=== PATIENT | male | born 1955 | race Caucasian/White ===

== ENCOUNTER 2017-02-28 17:03 | Inpatient (IN) | payer MEDICAID ==
[2017-02-28] VITALS (15 sets, daily range): BP systolic 79–119; BP diastolic 41–90; PULSE 83–92; RESP 20–33; Ht 172.7 cm; Wt 64.0 kg
[~2017-02-28] VITALS: Ht 172.7 cm; Wt 64.0 kg
[2017-02-28] MEDS ORDERED: ASPIRIN 325 MG TAB PO STA (17:29)
[2017-02-28] MEDS ORDERED: NITROGLYCERIN (SL) 0.4 MG TAB SL PRN (17:30)
--- NOTE | 2017-02-28 17:32 | ERD ---
ER Documentation Chief Complaint Chief Complaint chest pain x 2 wks worse today HPI This is a 61-year-old male with a history of hypertension, noncompliant on his medications who is presenting with chest pain. The patient first had chest pain left-sided radiating up into his neck with nausea and vomiting 2 weeks ago. It remitted after 1-2 days. However, it recurred approximately 2 hours prior to arrival to the emergency department today. He describes it as left- sided chest pressure and aching and squeezing. It is radiating into his neck bilaterally and the patient has jaw pain. He endorses nausea with sweating. The patient denies feeling sick recently. The patient denies fever or chills. The patient has had no headache or vision changes. The patient does not endorse back pain. The patient denies lightheadedness or dizziness. The patient has had no shortness of breath or trouble breathing. The patient denies abdominal pain or changes to bowel movements or urination. The patient has had no focal deficits. The patient has had no weakness or numbness or tingling to the face or extremities. ROS All systems reviewed and are negative except as per history of present illness. Allergies Allergies: Coded Allergies: No Known Allergy (Unverified , 02/28/17) PMhx/Soc History of Surgery: No Anesthesia Reaction: No Hx Neurological Disorder: No Hx Respiratory Disorders: No Hx Cardiac Disorders: Yes (HTN, HLD) Hx Psychiatric Problems: No Hx Miscellaneous Medical Probl: No FmHx Family History: No coronary disease Physical Exam Vitals Vital Signs Date Time Temp Pulse Resp B/P Pulse Ox O2 Delivery O2 Flow Rate FiO2 02/28/17 17:35 Nasal Cannula 2 02/28/17 17:07 98.0 97 16 94/73 95 Physical Exam Const: No apparent distress, well-developed, well-nourished Head: Atraumatic Eyes: Normal Conjunctiva. Extraocular movements intact. ENT: Normal External Ears, Nose and Mouth. Neck: Full range of motion. ~ No meningismus. Resp: Clear to auscultation bilaterally Cardio: Regular rate and rhythm, no murmurs Abd: Soft, non tender, non distended. Normal bowel sounds Skin: No petechiae or rashes Back: No midline or flank tenderness Ext: No cyanosis, or edema Neur: Awake and alert, oriented 4. Cranial nerves intact. No facial droop. Normal strength and sensation in all extremities. Coordination with finger to nose normal. Psych: Normal Mood and Affect Result Diagram: 02/28/17 17302/28/17 173 Results 24 hrs Laboratory Tests Test 02/28/17 17:30 02/28/17 18:50 White Blood Count 13.110^3/ul Red Blood Count 4.5610^6/ul Hemoglobin 13.4g/dl Hematocrit 40.3% Mean Corpuscular Volume 88.4fl Mean Corpuscular Hemoglobin 29.4pg Mean Corpuscular Hemoglobin Concent 33.3g/dl Red Cell Distribution Width 12.9% Platelet Count 29832^3/UL Mean Platelet Volume 10.1fl Neutrophils % 72.9% Lymphocytes % 18.7% Monocytes % 5.1% Eosinophils % 2.5% Basophils % 0.3% Nucleated Red Blood Cells % 0.0/100WBC Neutrophils # 9.510^3/ul Lymphocytes # 2.410^3/ul Monocytes # 0.710^3/ul Eosinophils # 0.310^3/ul Basophils # 0.010^3/ul Nucleated Red Blood Cells # 0.010^3/ul Prothrombin Time 12.8Sec Prothrombin Time Ratio 1.0 INR International Normalized Ratio 0.96 Sodium Level 143mmol/L Potassium Level 4.5mmol/L Chloride Level 106mmol/L Carbon Dioxide Level 29mmol/L Anion Gap 13 Blood Urea Nitrogen 14mg/dl Creatinine 0.80mg/dl Glucose Level 131mg/dl Calcium Level 9.6mg/dl Total Bilirubin 0.3mg/dl Direct Bilirubin 0.00mg/dl Indirect Bilirubin 0.3mg/dl Aspartate Amino Transf (AST/SGOT) 65IU/L Alanine Aminotransferase (ALT/SGPT) 53IU/L Alkaline Phosphatase 173IU/L Troponin I 3.690ng/ml Total Protein 7.6g/dl Albumin 3.6g/dl Globulin 4.00g/dl Albumin/Globulin Ratio 0.90 Blood Gas Specimen Source Blood arterial Arterial Blood Date Drawn 02/28/2017 6:58:05 PM Arterial Blood pH (Temp corrected) 7.449 Arterial Blood pCO2 (Temp correct) 33.7mmhg Arterial Blood pO2 (Temp corrected) 49.2mmHG Arterial Blood HCO3 22.8mmol/L Arterial Blood Base Excess -0.5mmol/L Arterial Blood Oxygen Saturation 85.7mmHG Abel Test N/A Arterial Blood Gas Puncture Site A-Line Arterial Blood Carboxyhemoglobin 1.5% Arterial Blood Methemoglobin 0.2% Blood Gas A-a O2 Differential 146.7mmHg Oxyhemoglobin Percent 84.2% Total Hemoglobin 13.5g/dl Blood Gas Temperature 37.0C Blood Gas Modality NASAL CANNULA FiO2 33.0% Blood Gas Critical Value Read Back MELINA EDMONDSON Blood Gas Notified Whom BR Blood Gas Notified Time 02/28/2017 7:05:53 PM Hepatitis B Surface Antigen Pending Hepatitis B Core Total Antibody Pending Hepatitis C Antibody Pending HIV (1&2) Antibody Pending Current Medications Medications (Trade) Dose Ordered Sig/Yazan Route PRN Reason Start Time Stop Time Status Last Admin Dose Admin Aspirin (Aspirin) 325 mg ONCE STAT PO 02/28/17 17:29 02/28/17 17:30 DC 02/28/17 17:34 Nitroglycerin (Nitroglycerin (Sl Tab) 0.4 Mg) 1 tab Q5M UP TO 3 DOSES PRN SL CHEST PAIN 02/28/17 17:30 02/28/17 17:35 Heparin Sodium (Porcine) (Heparin (1000 Units/ml)) 4,000 unit ONCE STAT IV 02/28/17 17:43 02/28/17 17:45 DC Heparin Sodium (Porcine) (Heparin (1000 Units/ml)) 10,000 unit STK-MED ONCE .ROUTE 02/28/17 17:49 02/28/17 17:50 DC Lidocaine (Xylocaine 1% (Mdv) 20 ml) 20 ml STK-MED ONCE .ROUTE 02/28/17 17:49 02/28/17 17:50 DC Iodixanol 100 ml 100 ml STK-MED ONCE .ROUTE 02/28/17 17:49 02/28/17 17:50 DC Heparin Sodium/ Sodium Chloride (Heparin 1000 Units/NS (A-Line)) 1,000 ml @ ud STK-MED ONCE .ROUTE 02/28/17 17:49 02/28/17 17:50 DC Midazolam HCl (Versed) 2 mg STK-MED ONCE .ROUTE 02/28/17 17:49 02/28/17 17:50 DC Fentanyl (Sublimaze) 100 mcg STK-MED ONCE .ROUTE 02/28/17 17:50 02/28/17 17:51 DC Nitroglycerin (Nitroglycerin (Intracoronary)) 1,000 mcg STK-MED ONCE .ROUTE 02/28/17 17:50 02/28/17 17:51 DC Verapamil HCl (Verapamil) 5 mg STK-MED ONCE .ROUTE 02/28/17 17:50 02/28/17 17:51 DC Ticagrelor (Brilinta) 90 mg STK-MED ONCE .ROUTE 02/28/17 18:02 02/28/17 18:03 DC Furosemide (Lasix) 40 mg STK-MED ONCE .ROUTE 02/28/17 18:43 02/28/17 18:44 DC Miscellaneous Information (* Miscellaneous Pharmacy Order) Hold all Metformin ... ONCE ONCE XX 02/28/17 19:00 02/28/17 20:03 DC Acetaminophen (Tylenol Tab) 650 mg Q4H PRN PO NON-CARDIAC PAIN LEVEL 1-3 02/28/17 19:00 Oxycodone/ Acetaminophen (Percocet (5/ 325)) 1 tab Q4H PRN PO REPORTED NON-CARDIAC PAIN 4-7 02/28/17 19:00 Oxycodone/ Acetaminophen (Percocet (5/ 325)) 2 tab Q4H PRN PO REPORTED NON-CARDIAC PAIN 4-7 02/28/17 19:00 Morphine Sulfate (morphine) 1 mg Q1H PRN IV PAIN NOT RELIEVED BY OTHERS 02/28/17 19:00 02/28/17 20:35 DC Al Hydrox/Mg Hydrox/Simethicone (Mag-Al Plus) 30 ml Q4H PRN PO GASTROINTESTINAL UPSET 02/28/17 19:00 Ondansetron HCl 4 mg 4 mg Q4H PRN IV NAUSEA AND/OR VOMITING 02/28/17 19:00 02/28/17 20:36 DC Sodium Chloride (NS) 1,000 ml @ 50 mls/hr Q20H IV 02/28/17 18:59 03/01/17 04:58 Procedures/MDM MDM The patient's presentation warrants further investigation. He is in his clinical presentation, I am concerned of acute coronary syndrome. An EKG, chest x-ray and blood work will be obtained immediately. LABS The patient's blood work was obtained and reviewed. The patient's CBC shows mild leukocytosis but no left shift. The patient is afebrile and does not appear systemically ill. I do not suspect a systemic infection. The patient is mildly anemic today, does not need to be emergently treated. The patient's platelet count is unremarkable. The patient's BMP shows no signs of metabolic or electrolyte abnormality. The patient's LFTs show mild transaminitis, which could be reactive. The patient has normal renal function testing. Since troponin is significantly elevated at 3.69. EKG EKG read by me: Rate/Rhythm: Regular rate and rhythm at a rate of 90 Intervals: Normal [place]: Left shifted Impression: 2-[address] elevations in leads V2 through V5 with reciprocal depressions in leads II, III and aVF, concerning for acute anterolateral wall cardial infarction IMAGING FINDINGS: The aorta is tortuous and atherosclerotic. The cardiomediastinal silhouette is otherwise enlarged. Diffuse pulmonary vascular congestion is seen with underlying pulmonary edema. No dense consolidation is seen. The soft tissues and osseous structures demonstrate benign age related senescent changes. IMPRESSION: Radiographic findings consistent with congestive heart failure as described above. Electronically viewed and signed by Physician Lamonte on 02/28/2017 18 :03 TREATMENT/DISPOSITION The patient's presenting with acute coronary syndrome, more specifically an acute anterolateral wall myocardial infarction. He was given aspirin and nitroglycerin initially in the emergency department. After the EKG was presented to me, I did call a code STEMI. I spoke to the residential monitor to felt that it was appropriate to take the patient to the cardiac Corporate Recycling Manager. Rest of the patient be given 4000 units of heparin. This was ordered. The patient was transferred to the Corporate Recycling Manager after 35 minutes. Patient will require admission to the ICU after cardiac catheterization. The patient will be admitted to Panel in accordance with the patient's insurance. The patient was accepted by Dr. Rodney at 7 PM on February 28, 2017 to ICU. CRITICAL CARE NOTE Time: 30 minutes excluding all billable procedures. Treatments/Evaluations: Evaluation of the patient's medical record including previous records & current laboratory/imaging studies, close monitoring, potential interventions if hemodynamically unstable or cardiopulmonary decline or neurologic decline, maintaining tight fluid balance, any discussions with the family regarding the patient's status and prognosis. Departure Diagnosis: Primary Impression: Myocardial infarction acute Myocardial infarction ST status: ST elevation myocardial infarction Involved coronary artery: unspecified coronary artery Qualified Code: I21.3 - Acute ST elevation myocardial infarction (STEMI), unspecified artery Condition: VENU Hayes MD Feb 28, 2017 17:32 [] The patient's blood pressure was elevated at greater than 120/80 while in the emergency department. The patient was otherwise stable with no evidence of hypertensive urgency or emergency. The patient will require reevaluation of his blood pressure in 2-3 days, but this may be completed by a primary care physician as an outpatient. He does not require admission for blood pressure control. CRITICAL CARE NOTE Time: 30 minutes excluding all billable procedures. Treatments/Evaluations: Evaluation of the patient's medical record including previous records & current laboratory/imaging studies, close monitoring, potential interventions if hemodynamically unstable or cardiopulmonary decline or neurologic decline, maintaining tight fluid balance, any discussions with the family regarding the patient's status and prognosis. Departure Diagnosis: Primary Impression: Myocardial infarction acute Myocardial infarction ST status: ST elevation myocardial infarction Involved coronary artery: unspecified coronary artery Qualified Code: I21.3 - Acute ST elevation myocardial infarction (STEMI), unspecified artery Condition: VENU Hayes MD Feb 28, 2017 17:32
[2017-02-28] MEDS ORDERED: HEPARIN 1000 UNITS/ML 10 ML INJ IV STA (17:43)
[2017-02-28] MEDS ORDERED: MIDAZOLAM 1 MG/ML 2 ML INJ ONE (17:49)
[2017-02-28] MEDS ORDERED: HEPARIN 1000 UNITS/ML 10 ML INJ ONE (17:49)
[2017-02-28] MEDS ORDERED: IODIXANOL LOCM 100 ML BTL ONE (17:49)
[2017-02-28] MEDS ORDERED: HEPARIN 1000 UNITS/NS (A-LINE) 1,000 ML ONE (17:49)
[2017-02-28] MEDS ORDERED: LIDOCAINE 1% (MDV) 20 ML INJ ONE (17:49)
[2017-02-28] MEDS ORDERED: NITROGLYCERIN (IC) 100 MCG/ML INJ ONE (17:50)
[2017-02-28] MEDS ORDERED: VERAPAMIL 5 MG INJ ONE (17:50)
[2017-02-28] MEDS ORDERED: FENTAnyl 50 MCG/ML VIAL ONE (17:50)
[2017-02-28] MEDS ORDERED: TICAGRELOR 90 MG TABLET ONE (18:02)
--- NOTE | 2017-02-28 18:03 | RADRPT ---
PROCEDURE: XR Chest. CLINICAL INDICATION: Shortness of breath. TECHNIQUE: A single portable view of the chest was obtained. COMPARISON: None FINDINGS: The aorta is tortuous and atherosclerotic. The cardiomediastinal silhouette is otherwise enlarged. Diffuse pulmonary vascular congestion is seen with underlying pulmonary edema. No dense consolidatio n is seen. The soft tissues and osseous structures demonstrate benign age related senescent changes. IMPRESSION: Radiographic findings consistent with congestive heart failure as described above. RPTAT: HPNM Physician Lamonte Date Time Electronically viewed and signed by Physician Lamonte on 02/28/2017 18:03 /
[2017-02-28] MEDS ORDERED: FUROSEMIDE 40 MG INJ ONE (18:43)
[2017-02-28] MEDS ORDERED: SOD CHLORIDE 0.9% 1,000 ML IV SCH ×2 (18:59→20:19)
[2017-02-28] MEDS ORDERED: OXYCODONE/ACETAMINOPHEN (5/325) TAB PO PRN ×2 (19:00)
[2017-02-28] MEDS ORDERED: ONDANSETRON 4 MG INJ IV PRN ×2 (19:00→20:30)
[2017-02-28] MEDS ORDERED: morphine 2 MG INJ IV PRN ×2 (19:00→20:30)
[2017-02-28] MEDS ORDERED: ACETAMINOPHEN 325 MG TAB PO PRN (19:00)
--- NOTE | 2017-02-28 19:14 | CONS ---
Date/Time of Note Date/Time of Note DATE: 02/28/17 TIME: 19:14 Assessment/Plan Assessment/Plan Chief Complaint/Hosp Course 1. Acute anterior STEMI 2./ S/P Emergent PCI LAD/ Diag, 3. cardiogenic shock: s/p IABP 4. HX HTN: now hypoensive and in shock. 5. likely severe ischemic cardiomyopathy 6. dyslipidemia 7. hx smoking 8. abnormal ECG due to above 9. severe hypoxemic resp failure RECOMMENDATION: Admit to ICU ASA 81 Brilitna 90 bid unable to start any BP meds. Cont IABP O2 heparin drip for now high dose statin ECHO IN AM. diuresis as tolerated. Than 45 minutes of critical care time was spent in management and treatment of this patient excluding any procedures. Thank you for his referral will continue to follow along with you. MAYCO YEAGER MD [facility] Problems: Consultation Date/Type/Reason Admit Date/Time Date of Consultation: Feb 28, 2017 Type of Consultation: interventional cardiology Reason for Consultation STEMI Referring Provider: VENU GABRIEL MD Hx of Present Illness Emergent interventional cardiology consultation CC: chest pain HPI: Thank you for his referral. This is a 61-year-old gentleman with history of smoking and hypertension who has not been compliant with any of his medication who presented to emergency room after 2 weeks of almost constant chest pain. It is anteriorly. It was severe today and decided to finally come to emergency room. EKG in the emergency room shows marked anterior ST elevation myocardial infarction with Q waves anteriorly consistent with recent PR. Because of his persistent chest pain and abnormal EKG consistent with anterior ST elevation PR patient was emergently taken to the Entomology Teacher for emergent cardiac catheterization. Coronary angiography showed severe multivessel disease including subtotal lesion of the proximal and mid LAD as well as diagonal. LAD was stented using 2 drug-eluting stent. Thrombectomy was done. Because of his cardiogenic shock hypotension and elevated LVEDP and severe hypoxemia noted intra-aortic balloon pump was also advanced as well. Currently patient is in the ICU. His chest pain has significantly improved now. Discussed with multiple physicians including the ER physician as well as patient and family members including his and probably children who were at the waiting room. Allergies: No known drug allergies Social history patient is active heavy smoker. Family history no reported early coronary artery disease. Past medical history: 1. Hypertension 2. Smoker 3. Dyslipidemia Medication At Home none. Review of system as above mentioned only. Social History Smoking Status: Current every day smoker Exam/Review of Systems Vital Signs Vitals Vital Signs Date Time Temp Pulse Resp B/P Pulse Ox O2 Delivery O2 Flow Rate FiO2 02/28/17 17:35 Nasal Cannula 2 02/28/17 17:07 98.0 97 16 94/73 95 Exam General: on 100% NRB o2 HEENT: NC/AT. pupils are equal. round. NECK: + JVD. no stridor. CV: RRR. systolic murmur; no gallop or rubs. PULM: no wheezing. + rhonchi. GI: SOFT, NT, ND, no rebound or guarding Extremity: trace B/L LE edema. no clubbing. neuro: awake and alert, OX3. Psych: calm and pleasant rectal: deferred vascular: R fem s/p IABP no hematoma or bleeding ECG NSR ANterior STEMI CXR: CHF Results Result Diagram: 02/28/17 1730 02/28/17 1730 Results 24 hrs Laboratory Tests Test 02/28/17 17:30 02/28/17 18:50 White Blood Count 13.1 H Red Blood Count 4.56 L Hemoglobin 13.4 L Hematocrit 40.3 L Mean Corpuscular Volume 88.4 Mean Corpuscular Hemoglobin 29.4 Mean Corpuscular Hemoglobin Concent 33.3 Red Cell Distribution Width 12.9 Platelet Count 381 Mean Platelet Volume 10.1 Neutrophils % 72.9 Lymphocytes % 18.7 Monocytes % 5.1 Eosinophils % 2.5 Basophils % 0.3 Nucleated Red Blood Cells % 0.0 Neutrophils # 9.5 H Lymphocytes # 2.4 Monocytes # 0.7 Eosinophils # 0.3 Basophils # 0.0 Nucleated Red Blood Cells # 0.0 Prothrombin Time 12.8 Prothrombin Time Ratio 1.0 INR International Normalized Ratio 0.96 Sodium Level 143 Potassium Level 4.5 Chloride Level 106 Carbon Dioxide Level 29 Anion Gap 13 Blood Urea Nitrogen 14 Creatinine 0.80 Glucose Level 131 Calcium Level 9.6 Total Bilirubin 0.3 Direct Bilirubin 0.00 Indirect Bilirubin 0.3 Aspartate Amino Transf (AST/SGOT) 65 H Alanine Aminotransferase (ALT/SGPT) 53 Alkaline Phosphatase 173 H Troponin I 3.690 *H Total Protein 7.6 Albumin 3.6 Globulin 4.00 H Albumin/Globulin Ratio 0.90 Blood Gas Specimen Source Blood arterial Arterial Blood Date Drawn 02/28/2017 6:58:05 PM Arterial Blood pH (Temp corrected) 7.449 Arterial Blood pCO2 (Temp correct) 33.7 L Arterial Blood pO2 (Temp corrected) 49.2 *L Arterial Blood HCO3 22.8 Arterial Blood Base Excess -0.5 Arterial Blood Oxygen Saturation 85.7 L Abel Test N/A Arterial Blood Gas Puncture Site A-Line Arterial Blood Carboxyhemoglobin 1.5 Arterial Blood Methemoglobin 0.2 Blood Gas A-a O2 Differential 146.7 H Oxyhemoglobin Percent 84.2 L Total Hemoglobin 13.5 Blood Gas Temperature 37.0 Blood Gas Modality NASAL CANNULA FiO2 33.0 Blood Gas Critical Value Read Back MELINA EDMONDSON Blood Gas Notified Whom BR Blood Gas Notified Time 02/28/2017 7:05:53 PM Medications Medications Current Medications Miscellaneous Information (* Miscellaneous Pharmacy Order) Hold all Metformin ... ONCE ONCE XX ; Start 02/28/17 at 19:00; Stop 02/28/17 at 19:01; Status UNV Aspirin (Halfprin) 81 mg DAILY PO ; Start 03/01/17 at 09:00; Status UNV Ticagrelor (Brilinta) 90 mg BID PO ; Start 02/28/17 at 21:00; Status UNV Acetaminophen (Tylenol Tab) 650 mg Q4H PRN PO NON-CARDIAC PAIN LEVEL 1-3; Start 02/28/17 at 19:00; Status UNV Oxycodone/ Acetaminophen (Percocet (5/ 325)) 1 tab Q4H PRN PO REPORTED NON- CARDIAC PAIN 4-7; Start 02/28/17 at 19:00; Status UNV Oxycodone/ Acetaminophen (Percocet (5/ 325)) 2 tab Q4H PRN PO REPORTED NON- CARDIAC PAIN 4-7; Start 02/28/17 at 19:00; Status UNV Morphine Sulfate (morphine) 1 mg Q1H PRN IV PAIN NOT RELIEVED BY OTHERS; Start 02/28/17 at 19:00; Status UNV Al Hydrox/Mg Hydrox/Simethicone (Mag-Al Plus) 30 ml Q4H PRN PO GASTROINTESTINAL UPSET; Start 02/28/17 at 19:00; Status UNV Ondansetron HCl (Zofran Inj) 4 mg Q4H PRN IV NAUSEA AND/OR VOMITING; Start at 19:00; Status UNV Docusate Sodium (Colace) 100 mg BID PO ; Start 02/28/17 at 21:00; Status UNV Famotidine (Pepcid) 20 mg Q12 PO ; Start 02/28/17 at 21:00; Status UNV Atorvastatin Calcium 80 mg 80 mg DAILY@21 PO ; Start 02/28/17 at 21:00; Status UNV Sodium Chloride 1,000 ml @ 50 mls/hr Q20H IV ; Start 02/28/17 at 18:59; Stop 03/01/17 at 04:58; Status UNV Cefazolin Sodium (Ancef 1 Gm/50 ml (Pmx)) 50 ml @ 100 mls/hr Q8 IVPB ; Start 03/01/17 at 02:00; Stop 03/01/17 at 02:29; Status UNV MAYCO YEAGER MD Feb 28, 2017 19:14
--- NOTE | 2017-02-28 19:26 | OPR ---
Date/Time of Note Date/Time of Note DATE: 02/28/17 TIME: 19:14 Operative Report Procedure Date: Feb 28, 2017 Preoperative Diagnosis STEMI, CARDIOGENIC SHOCK Postoperative Diagnosis same Surgeon see signature line Ingot Buggy Operator N/A Anesthesia Type: moderate sedation Estimated Blood Loss: none Transfusion none Specimen NONE Grafts/Implants none Complications none Procedure Description Joggle Press Operator: Mayco Saab MD Indication: ANTERIOR STEMI, Cardiogenic SHOCK, Procure performed: #1 emergent left heart catheterization and selective right and left coronary angiogram. #2 Right femoral angiogram 3. Successful PTCA and stenting of proximal LAD using 2.75x15 mm Alie NEW and mid to proximal LAD using a 2.5X38 mm alie NEW 4. PTCA of diagonal one 5. Thrombectomy of LAD using a pronto device 6. IABP placement under direct fluoroscopy 7. Moderate sedation for more than 75 minutes Findings: 1. Left main: is long and trirfurcates to LAD & LCX, RI. it has 30% distal stenosis 2. LAD: is long has subtotal stenosis at proximal LAD, and 95 % stenosis at mid LAD ---> 0% post PCI . diagonal 1 also had 99% ostial/ proximal stenosis. ---> 0% post PCI distal LAD is very small and diffusely diseased 3. Left circumflex artery: is nondominant. it has 80% mid stenosis 4. Ramus intermediate: is a large vessel with 70% ostial and 80 proximal stenosis. 5. RCA: is moderate to large vessel. it isdominant. it has 40 % stenosis at proximal and mid Procedure in detail: Written informed consent with obtained after risks benefits and alternatives discussed with the patient in detail. risks including but not limited to risk of infection vascular complications, bleeding complications, UT stroke arrhythmia renal failure at even were discussed with the patient and his in detail. Patient was emergently brought into the cardiac labor arbitrator hearing office and placed in supine position. Right and left groin area was prepped and draped in regular sterile fashion and then he was in anesthetized using 1% lidocaine. Right femoral artery was cannulated and using modified seldinger technique a 6 Maltese sheath was placed in the right femoral artery. The JR4 catheter was advanced and engaged right coronary artery angiographic view was obtained. A JL4 guiding head was advanced to engage the left main coronary artery. Angiographic view was obtained. BMW wire was used and advanced across the lesion and placed distal to the argery. I used a 2.5 x 12 mm balloon which was placed across the lesion and predilated the vessel. Then Pronto was used and thrombectomy was done. Angiographic view was obtained. Then I went back with the same balloon and angioplasty of the proximal and mid LAD was done. At this point it was noted that the diagonal also is severely diseased has very poor flow. Another BMW wire was used and advanced across into this lesion. Same 2.5 x 12 mm balloon was used and angioplasty of the ostium and proximal diagonal was done. Then I used a 2.5 x 38 mm alie drug-eluting stent stent which was placed across the lesion at mid to proximal LAD and deployed at 12 jan. Finally a 2.75 x 15 mm alie drug-eluting stent which was used in place at proximal to proximal LAD, this study was overlapping with the previous stent. This stent was deployed at 14 jan. Then the stent balloon was advanced and overlapping area was postdilated also at 14 jan. Final angiographic view was obtained which showed BENITA-3 flow no evidence of dissection and no significant residual stenosis at the site of the stent. Right femoral angiogram was performed. Pigtail was advanced to engage the left ventricle hemodynamics as recorded by pullback aortic pressure was measured. Because of hypotension as well as severely elevated LVEDP and hypoxemia all consistent with cardiogenic shock, it was decided to place intra-aortic balloon pump. I changed the sheath to an 8 Maltese sheath. Under direct fluoroscopy intra- aortic balloon was placed across the descending aorta. Sheath and balloon pump was sutured in and secured in. Patient tolerated the procedure well with no complication. Patient was transferred to ICU in stable condition. Conclusions: Successful PTCA stenting / thrombectomy of the proximal and mid left anterior descending artery from subtotal stenosis to no significant residual stenosis using a 2.75 x 15 mm and a 2.5 x 38 mm drug-eluting stent. Recommendations: Aggressive medical therapy. aspirin indefinitely dual antiplatlet therapy with ASA/ brilinta ICU care MAYCO SAAB MD [facility] . MAYCO SAAB MD Feb 28, 2017 19:26
[2017-02-28] MEDS: NORepinephrine 8MG/250 ML (PMX 250 ML IV SCH (20:00)
[2017-02-28] MEDS ORDERED: NORepinephrine 8MG/250 ML (PMX 250 ML ONE (20:03)
[2017-02-28] MEDS ORDERED: ACETAMINOPHEN 650 MG SUPP PR PRN (20:30)
[2017-02-28] MEDS ORDERED: HEPARIN 1000 UNITS/ML 10 ML INJ IV SCH (20:30)
[2017-02-28] MEDS: FAMOTIDINE 20 MG TAB PO SCH (21:14)
[2017-02-28] MEDS: ATORVASTATIN 80 MG TAB PO SCH (21:14)
[2017-02-28] MEDS: DOCUSATE SODIUM 100 MG CAP PO SCH (21:14)
[2017-02-28] MEDS: TICAGRELOR 90 MG TABLET PO SCH (21:15)
[2017-02-28] MEDS: HEPARIN 25000 UNITS/250 ML 250 ML IV SCH (21:36)
[2017-02-28] MEDS ORDERED: POLYETHYLENE GLYCOL 17 GM PACKET PO PRN (23:00)
[2017-02-28] MEDS: AL HYDROX/MG HYDROX/SIMETH 30 ML CUP PO PRN (23:04)
--- NOTE | 2017-02-28 23:29 | HP ---
Date/Time of Note Date/Time of Note DATE: 02/28/17 TIME: 23:25 Assessment/Plan VTE Prophylaxis VTE Prophylaxis Intervention: heparin, SCD's Lines/Catheters IV Catheter Type (from [facility]): Peripheral IV Urinary Cath still in place: Yes Reason Cath still needed: other (indicate) (Clinical indication) Assessment/Plan Chief Complaint/Hosp Course This is a 61-year-old male being admitted to the ICU floor for: #1 acute STEMI: Patient had EKG changes reflective of an acute anterior ST elevation ND. Patient was taken into emergent [facility] where he had 2 drug- eluting stents placed in LAD. Please see catheterization report for full details. At the current time patient is stable and chest pain has resolved. Will continue aspirin 81 mg daily. Brilinta 90 mg twice daily. He is on heparin drip at this time. Will continue the intra-aortic balloon pump at this time and defer management to cardiology. Check a hemoglobin A1c lipid panel and TSH. Will obtain an echo in the a.m. Start high-dose statin. #2 cardiogenic shock: Secondary #1. At the current time patient has intra- aortic balloon pump placed. He is currently on pressor support. We will continue to monitor patient's blood pressures. Patient was also noted to have pulmonary congestion. The current time patient did receive diuretics. Will continue to monitor repeat a chest x-ray in the a.m. Echocardiogram in the a.m. if patient requires more pressor support patient may need a central line placed. #3 hypertension: Patient has been noncompliant with his blood pressure medications. Will continue to monitor his blood pressures. And start medications as indicated. We appreciate cardiology's recommendations. #4 hyperlipidemia: Patient currently started on high-dose statin. Will encourage compliance. Will check lipid panel. Encourage outpatient lipid panel monitoring as well as LFT monitoring. #5 DVT GI prophylaxis: SCDs/heparin, Protonix Further treatment strategy will be implemented as per the clinical course Problems: HPI/ROS Admit Date/Time Admit Date/Time Hx of Present Illness cc: chest pain x 2 weeks This is a 61-year-old male with a history of hypertension, noncompliant on his medications who is presented to the ED with chest pain. The patient first had chest pain left-sided radiating up into his neck with nausea and vomiting 2 weeks ago. It remitted after 1-2 days. However, it recurred approximately 2 hours prior to arrival to the emergency department today. He describes it as left-sided chest pressure and aching and squeezing. It is radiating into his neck bilaterally and the patient has jaw pain. He endorses nausea with sweating. She does report that he has not been taking his medications on a regular basis. The patient denies feeling sick recently. The patient denies fever or chills. The patient has had no headache or vision changes. The patient does not endorse back pain. The patient denies lightheadedness or dizziness. The patient has had no shortness of breath or trouble breathing. The patient denies abdominal pain or changes to bowel movements or urination. The patient has had no focal deficits. The patient has had no weakness or numbness or tingling to the face or extremities. EKG in the emergency room shows marked anterior ST elevation myocardial infarction with Q waves anteriorly consistent with recent ND. Because of the nature of his pain as well as EKG changes it was determined that it would be best to take the patient in to the [facility] for an emergent catheterization. He was noted to have multivessel disease on coronary angiography. And he had stents 2 placed in the LAD as well as an intra-aortic balloon pump secondary to cardiogenic shock. Patient currently right now is in the ICU and he is stable and doing well. He denies any chest pain at this time. He did report that earlier he was having some shortness of breath which patient was given Lasix and he is appropriately diuresing at this moment. Allergies: NKDA Medications: See TRACY REYES Const: As per HPI Eyes : No pain discharge or redness or change in visual acuity ENT: No pain, sore throat, congestion, congestion, dysphagia or discharge Respiratory: As per HPI Cardiovascular: As per HPI GI : no change in appetite, abdominal pain, nausea, vomiting, diarrhea, constipation, or change in the color his stool Genitourinary: No dysuria, hematuria, flank pain , discharge or CVA tenderness Musculoskeletal: No joint pain, back pain, neck pain, restricted range of motion in neck or joints Skin: No rash, bruising or hives Neuro: No headache, dizziness, syncope, seizure, focal weakness Endocrine: No polyuria, polydipsia, temperature intolerance Psych: No hallucination, depression, anxiety or suicidal ideation PMH/Family/Social Past Medical History htn, hld Past Surgical History s/p heart catheterization today Family History Significant Family History: hypertension (mom) Social History Alcohol Use: none Smoking Status: Current every day smoker (Half pack per day 40 years) Drug Use: none Exam/Review of Systems Vital Signs Vitals Vital Signs Date Time Temp Pulse Resp B/P Pulse Ox O2 Delivery O2 Flow Rate FiO2 02/28/17 22:15 87 28 117/70 97 Mask 6.0 02/28/17 20:00 97.9 Exam Exam General: Patient is status post left heart catheterization, lying in bed in no acute distress. HEENT: Atraumatic, normocephalic. The pupils are equal, round and reactive. Extraocular motor are intact Neck: Supple with full range of motion. No rigidity or meningismus Chest: Nontender Lungs: Clear to auscultation bilaterally no crackles rales or wheezing Heart: Normal S1-S2, Regular rhythm and rate. Abdomen: Soft , nontender, nondistended , bowel sounds are present. No guarding no rebound tenderness , No masses or organomegaly. No costovertebral temporal angle mass Extremities: Normal to inspection, no edema no cyanosis Neurologic: Normal mental status, speech normal, cranial nerves II through XII are intact, motor and sensory are intact, no focal weakness Vascular: Right femoral intra-aortic aortic balloon pump. Additional Comments EKG : Rate/Rhythm: Regular rate and rhythm at a rate of 90 Intervals: Normal Impression: 2-[address] elevations in leads V2 through V5 with reciprocal depressions in leads II, III and aVF, concerning for acute anterolateral wall cardial infarctionPROCEDURE: XR Chest. CLINICAL INDICATION: Shortness of breath. TECHNIQUE: A single portable view of the chest was obtained. COMPARISON: None FINDINGS: The aorta is tortuous and atherosclerotic. The cardiomediastinal silhouette is otherwise enlarged. Diffuse pulmonary vascular congestion is seen with underlying pulmonary edema. No dense consolidation is seen. The soft tissues and osseous structures demonstrate benign age related senescent changes. IMPRESSION: Radiographic findings consistent with congestive heart failure as described above. RPTAT: HPNM Physician Lamonte Date Time Electronically viewed and signed by Gurmeet Stovall Physician on 02/28/2017 18 :03 / CC: VENU GABRIEL MD Labs Result Diagram: 02/28/17 1730 02/28/17 1730 Medications Medications Current Medications Aspirin (Halfprin) 81 mg DAILY PO ; Start 03/01/17 at 09:00 Ticagrelor (Brilinta) 90 mg BID PO Last administered on 02/28/17 21:15; Admin Dose 90 MG; Start 02/28/17 at 21:00 Acetaminophen (Tylenol Tab) 650 mg Q4H PRN PO NON-CARDIAC PAIN LEVEL 1-3; Start 02/28/17 at 19:00 Oxycodone/ Acetaminophen (Percocet (5/ 325)) 1 tab Q4H PRN PO REPORTED NON- CARDIAC PAIN 4-7; Start 02/28/17 at 19:00 Oxycodone/ Acetaminophen (Percocet (5/ 325)) 2 tab Q4H PRN PO REPORTED NON- CARDIAC PAIN 4-7; Start 02/28/17 at 19:00 Al Hydrox/Mg Hydrox/Simethicone (Mag-Al Plus) 30 ml Q4H PRN PO GASTROINTESTINAL UPSET Last administered on 02/28/17 23:04; Admin Dose 30 ML; Start 02/28/17 at 19:00 Docusate Sodium (Colace) 100 mg BID PO Last administered on 02/28/17 21:14; Admin Dose 100 MG; Start 02/28/17 at 21:00 Famotidine (Pepcid) 20 mg Q12 PO Last administered on 02/28/17 21:14; Admin Dose 20 MG; Start 02/28/17 at 21:00 Atorvastatin Calcium 80 mg 80 mg DAILY@21 PO Last administered on 02/28/17 21 :14; Admin Dose 80 MG; Start 02/28/17 at 21:00 Cefazolin Sodium 50 ml @ 100 mls/hr Q8 IVPB ; Start 03/01/17 at 02:00; Stop 03/01/17 at 02:29 Norepinephrine 250 ml @ 1.875 mls/ hr TITRATE IV Last administered on 20:00; Admin Dose 1.875 MLS/HR; Start 02/28/17 at 20:00 Sodium Chloride (NS) 1,000 ml @ 60 mls/hr [id number] IV Last administered on 21:33; Admin Dose 60 MLS/HR; Start 02/28/17 at 20:19 Ondansetron HCl (Zofran Inj) 4 mg Q6H PRN IV NAUSEA AND/OR VOMITING; Start at 20:30 Acetaminophen (Tylenol Supp) 650 mg Q4H PRN [place] PAIN LEVEL 1-3 OR FEVER; Start 02/28/17 at 20:30 Morphine Sulfate (morphine) 1 mg Q4H PRN IV PAIN LEVEL 7-10; Start 02/28/17 at 20:30 Pantoprazole 40 mg 40 mg DAILY@06 IV ; Start 03/01/17 at 06:00 Heparin Sodium (Porcine) (Heparin 69501 Units/250 ml) 250 ml @ 5 mls/hr Q24H IV Last administered on 02/28/17 21:36; Admin Dose 5 MLS/HR; Start 02/28/17 at 20:00 Polyethylene Glycol (Miralax) 17 gm DAILY PRN PO CONSTIPATION; Start 02/28/17 at 23:00 SHELLY WILBURN Feb 28, 2017 23:29
[2017-03-01] VITALS (93 sets, daily range): BP systolic 81–123; BP diastolic 33–87; PULSE 73–99; RESP 10–33
[2017-03-01] MEDS ORDERED: CEFAZOLIN 1 GM/50 ML (PMX) 50 ML IVPB SCH (02:00)
--- NOTE | 2017-03-01 05:11 | RADRPT ---
PROCEDURE: XR Chest. CLINICAL INDICATION: Pulmonary edema TECHNIQUE: An AP view of the chest was obtained. COMPARISON: Chest x-ray dated 02/28/2017 FINDINGS: There is an intra-aortic balloon pump with radiopaque marker within the mid portion of the descendi ng thoracic aorta. There is prominence of the interstitial and central pulmonary vascular markings with small bilatera l pleural effusions. No focal airspace opacification or pneumothorax is seen. The cardiomediastin al silhouette is moderately enlarged. The osseous structures demonstrate senescent changes. IMPRESSION: 1. Findings suggestive of pulmonary vascular congestion with small bilateral pleural effusions. Fi ndings are increased when compared to the prior examination. 2. Moderate cardiomegaly. 3. The intra-aortic balloon pump radiopaque marker is in the mid descending thoracic aorta. Conside r advancing 4-5 cm. RPTAT: HH .Mary Wakefield MD, MD Date Time Electronically viewed and signed by .Mary Wakefield MD, on 03/01/2017 05:10 .G/
[2017-03-01] MEDS ORDERED: PANTOPRAZOLE 40 MG INJ IV SCH (06:00)
[2017-03-01] MEDS ORDERED: MAGNESIUM SULFATE 2 GM/50 ML 50 ML IVPB ONE (09:00)
[2017-03-01] MEDS: DOCUSATE SODIUM 100 MG CAP PO SCH ×2 (09:04→20:42)
[2017-03-01] MEDS: FAMOTIDINE 20 MG TAB PO SCH ×2 (09:04→20:42)
[2017-03-01] MEDS: TICAGRELOR 90 MG TABLET PO SCH ×2 (09:05→20:43)
[2017-03-01] MEDS: ASPIRIN (EC) 81 MG TAB PO SCH (09:07)
--- NOTE | 2017-03-01 10:45 | RADRPT ---
Echocardiogram Report Patient Name: ISH KHANNA Gender: Male Date: 1955 Study Date: 01-Mar-2017 Engineering Lab Technician: Hector Harrison RDCS Location: 113 Ref. Physician: MAYCO SAAB Quality: Good Procedures: Transthoracic echocardiogram with complete 2D, M-Mode, and doppler examination. Indications: STEMI. 2D/M Mode Doppler Measurement Value Normal Ranges Measurement Value Normal Ranges LVIDd 2D 5.5 3.5 - 5.6 cm AV Peak Severino 1.4 m/sec LVIDs 2D 4.1 2.1 - 4.1 cm AV Peak PG 8.0 mmHg FS 2D 25.0 % LVOT Peak Severino 0.9 m/sec LVPWd 2D 1.0 0.6 - 1.1 cm LVOT Peak PG 3.0 mmHg IVSd 2D 0.9 0.6 - 1.1 cm MV E Peak Severino 0.8 m/sec IVS/LVPW 2D 0.9 MV A Peak Severino 0.9 m/sec AoR Diam 2D 3.1 2.0 - 3.7 cm MV E/A 0.9 LA/Ao 2D 1 0 - 1 MV Decel Time 144 msec EDV 2D 167.0 cm3 MV E/A 0.9 ESV 2D 70.4 cm3 TR Peak Severino 3.0 m/sec LA Dimen 2D 3.9 2.3 - 4.0 cm TR Peak PG 36.0 mmHg RVSP 46.0 mmHg Findings Left Ventricle: Normal left ventricular wall thickness. Mild enlargement of left ventricle cavity. Severe left ventricular systolic dysfunction. Ejection fraction is visually estimated at 15 %. Tissue Doppler/Mitral Doppler indices are consistent with impaired relaxation (Stage I diastolic dysfunction). Multiple segmental wall motion abnormalities. These segments of the LV are akinetic apical septum segment, apical cap, anteroseptum mid segment, inferoseptum mid segment, Apical inferior segment, anterolateral mid segment, apical lateral segment, apical anterior segment, mid anterior segment and basal anterior segment. Right Ventricle: Normal right ventricular size. Normal right ventricular systolic function. Left Atrium: The left atrium is normal in size. Right Atrium: The right atrium is normal in size. Mitral Valve: Mitral valve leaflets appear mildly thickened. Mild mitral annular calcification. Mild mitral valve regurgitation. Aortic Valve: No significant aortic stenosis or insufficiency. Aortic cusps appear mildly calcified. Tricuspid Valve: Normal appearance of the tricuspid valve. Estimated peak PA systolic pressure 46 mmHg. There is mild tricuspid regurgitation. Pulmonic Valve: Pulmonic valve not well visualized. Pericardium: Small pericardial effusion. Aorta: Normal aortic root. IVC: Normal size and normal respiratory collapse consistent with normal right atrial pressure. Conclusions 1.Normal left ventricular wall thickness. Mild enlargement of left ventricle cavity. Severe left ventricular systolic dysfunction. Ejection fraction is visually estimated at 15 %. Tissue Doppler/Mitral Doppler indices are consistent with impaired relaxation (Stage I diastolic dysfunction). Multiple segmental wall motion abnormalities. These segments of the LV are akinetic apical septum segment, apical cap, anteroseptum mid segment, inferoseptum mid segment, Apical inferior segment, anterolateral mid segment, apical lateral segment, apical anterior segment, mid anterior segment and basal anterior segment. 2.Mitral valve leaflets appear mildly thickened. Mild mitral annular calcification. Mild mitral valve regurgitation. 3.No significant aortic stenosis or insufficiency. Aortic cusps appear mildly calcified. 4.Normal appearance of the tricuspid valve. Estimated peak PA systolic pressure 46 mmHg. There is mild tricuspid regurgitation. 5.Small pericardial effusion. 6.Normal size and normal respiratory collapse consistent with normal right atrial pressure. Electronically Signed By: Mayco Saab 01-Mar-2017 10:44:00 -0700 Patient Name: ISH KHANNA Study Date: 01-Mar-[id number]
[2017-03-01] MEDS ORDERED: FUROSEMIDE 20 MG INJ IV ONE (11:00)
[2017-03-01] MEDS ORDERED: MAGNESIUM SULFATE 1 GM/D5W 100 ML IVPB ONE (11:00)
--- NOTE | 2017-03-01 11:13 | CONS ---
Date/Time of Note Date/Time of Note DATE: 03/01/17 TIME: 11:07 Consult Date/Type/Reason Admit Date/Time Feb 28, 2017 at 19:03 Initial Consult Date 02/28/17 Type of Consultation: interventional cardiology Ordering Provider: VENU GABRIEL MD Subjective Cardiology follow up note/ critical care note: S: Discussed with the staff and discussed with patient and extensively. Patient remains on and throughout balloon pump and on Levophed drip in ICU. Patient denies any chest pain or pressure to me. He is less hypoxemic. He denies any active bleeding or groin pain to me. O: General: on IABP in ICU on levophed HEENT: NC/AT. pupils are equal. round. NECK: + JVD. no stridor. CV: RRR. systolic murmur; no gallop or rubs. PULM: + rhonchi. GI: SOFT, NT, ND, no rebound or guarding Extremity: trace B/L LE edema. no clubbing. neuro: awake and alert, OX3. Psych: calm and pleasant rectal: deferred : s/p barker ECHO reviewed; EF 15% Objective Vital Signs Date Time Temp Pulse Resp B/P Pulse Ox O2 Delivery O2 Flow Rate FiO2 03/01/17 10:00 85 26 106/68 99 Nasal Cannula 3.0 03/01/17 07:30 99.0 Intake and Output 02/28/17 02/28/17 03/01/17 15:00 23:00 07:00 Intake Total 239.375 ml 939.251 ml Output Total 1050 ml 485 ml Balance -810.625 ml 454.251 ml Results/Medications Result Diagram: 03/01/17 0445 03/01/17 0445 Results 24 hrs Laboratory Tests Test 02/28/17 17:30 02/28/17 18:50 02/28/17 23:19 03/01/17 04:45 White Blood Count 13.1 H 17.1 #H Red Blood Count 4.56 L 3.87 L Hemoglobin 13.4 L 11.7 L Hematocrit 40.3 L 33.7 L Mean Corpuscular Volume 88.4 87.1 Mean Corpuscular Hemoglobin 29.4 30.2 Mean Corpuscular Hemoglobin Concent 33.3 34.7 Red Cell Distribution Width 12.9 12.9 Platelet Count 381 409 Mean Platelet Volume 10.1 10.0 Neutrophils % 72.9 82.5 H Lymphocytes % 18.7 10.6 L Monocytes % 5.1 5.3 Eosinophils % 2.5 0.8 Basophils % 0.3 0.3 Nucleated Red Blood Cells % 0.0 0.0 Neutrophils # 9.5 H 14.1 H Lymphocytes # 2.4 1.8 Monocytes # 0.7 0.9 Eosinophils # 0.3 0.1 Basophils # 0.0 0.1 Nucleated Red Blood Cells # 0.0 0.0 Prothrombin Time 12.8 Prothrombin Time Ratio 1.0 INR International Normalized Ratio 0.96 Sodium Level 143 138 Potassium Level 4.5 4.1 Chloride Level 106 107 Carbon Dioxide Level 29 24 Anion Gap 13 11 Blood Urea Nitrogen 14 12 Creatinine 0.80 0.68 Glucose Level 131 131 Calcium Level 9.6 8.3 L Total Bilirubin 0.3 0.7 Direct Bilirubin 0.00 0.00 Indirect Bilirubin 0.3 0.7 Aspartate Amino Transf (AST/SGOT) 65 H 97 H Alanine Aminotransferase (ALT/SGPT) 53 51 Alkaline Phosphatase 173 H 139 H Troponin I 3.690 *H 12.600 *H 14.000 *H Total Protein 7.6 6.2 # Albumin 3.6 2.8 L Globulin 4.00 H 3.40 H Albumin/Globulin Ratio 0.90 0.82 Blood Gas Specimen Source Blood arterial Arterial Blood Date Drawn 02/28/2017 6:58:05 PM Arterial Blood pH (Temp corrected) 7.449 Arterial Blood pCO2 (Temp correct) 33.7 L Arterial Blood pO2 (Temp corrected) 49.2 *L Arterial Blood HCO3 22.8 Arterial Blood Base Excess -0.5 Arterial Blood Oxygen Saturation 85.7 L Abel Test N/A Arterial Blood Gas Puncture Site A-Line Arterial Blood Carboxyhemoglobin 1.5 Arterial Blood Methemoglobin 0.2 Blood Gas A-a O2 Differential 146.7 H Oxyhemoglobin Percent 84.2 L Total Hemoglobin 13.5 Blood Gas Temperature 37.0 Blood Gas Modality NASAL CANNULA FiO2 33.0 Blood Gas Critical Value Read Back MELINA EDMONDSON Blood Gas Notified Whom BR Blood Gas Notified Time 02/28/2017 7:05:53 PM Hepatitis B Surface Antigen NEGATIVE Hepatitis B Core Total Antibody NEGATIVE Hepatitis C Antibody NEGATIVE HIV (1&2) Antibody NEGATIVE Creatine Kinase 608 H 658 H Creatine Kinase Index 7.7 6.2 Creatinine Kinase MB (Mass) 46.80 H 40.60 H Activated Partial Thromboplast Time 40.0 H Magnesium Level 1.7 B-Type Natriuretic Peptide 7080 H Triglycerides Level 119 Cholesterol Level 124 LDL Cholesterol, Calculated 84 HDL Cholesterol 16 L Cholesterol/HDL Ratio 7.7 Thyroid Stimulating Hormone (TSH) 0.744 Free Thyroxine 1.53 Test 03/01/17 07:00 Blood Gas Specimen Source Blood arterial Arterial Blood Date Drawn 03/01/2017 7:40:23 AM Arterial Blood pH (Temp corrected) 7.480 H Arterial Blood pCO2 (Temp correct) 28.4 L Arterial Blood pO2 (Temp corrected) 113.2 H Arterial Blood HCO3 20.7 L Arterial Blood Base Excess -1.7 Arterial Blood Oxygen Saturation 98.1 H Abel Test N/A Arterial Blood Gas Puncture Site A-Line Arterial Blood Carboxyhemoglobin 0.3 Arterial Blood Methemoglobin 0.3 Blood Gas A-a O2 Differential 175.3 H Oxyhemoglobin Percent 97.5 Total Hemoglobin 12.6 Blood Gas Temperature 37.0 Blood Gas Modality MASK - SIMPLE FiO2 45.0 Blood Gas Notified Whom JLD Blood Gas Notified Time 03/01/2017 8:21:10 AM Medications Current Medications Aspirin (Halfprin) 81 mg DAILY PO Last administered on 03/01/17 09:07; Admin Dose 81 MG; Start 03/01/17 at 09:00 Ticagrelor (Brilinta) 90 mg BID PO Last administered on 03/01/17 09:05; Admin Dose 90 MG; Start 02/28/17 at 21:00 Acetaminophen (Tylenol Tab) 650 mg Q4H PRN PO NON-CARDIAC PAIN LEVEL 1-3; Start 02/28/17 at 19:00 Oxycodone/ Acetaminophen (Percocet (5/ 325)) 1 tab Q4H PRN PO REPORTED NON- CARDIAC PAIN 4-7; Start 02/28/17 at 19:00 Oxycodone/ Acetaminophen (Percocet (5/ 325)) 2 tab Q4H PRN PO REPORTED NON- CARDIAC PAIN 4-7; Start 02/28/17 at 19:00 Al Hydrox/Mg Hydrox/Simethicone (Mag-Al Plus) 30 ml Q4H PRN PO GASTROINTESTINAL UPSET Last administered on 02/28/17 23:04; Admin Dose 30 ML; Start 02/28/17 at 19:00 Docusate Sodium (Colace) 100 mg BID PO Last administered on 03/01/17 09:04; Admin Dose 100 MG; Start 02/28/17 at 21:00 Famotidine (Pepcid) 20 mg Q12 PO Last administered on 03/01/17 09:04; Admin Dose 20 MG; Start 02/28/17 at 21:00 Atorvastatin Calcium 80 mg 80 mg DAILY@21 PO Last administered on 02/28/17 21 :14; Admin Dose 80 MG; Start 02/28/17 at 21:00 Norepinephrine (Levophed) 250 ml @ 1.875 mls/ hr TITRATE IV Last administered on 02/28/17 20:00; Admin Dose 1.875 MLS/HR; Start 02/28/17 at 20:00 Ondansetron HCl (Zofran Inj) 4 mg Q6H PRN IV NAUSEA AND/OR VOMITING; Start at 20:30 Acetaminophen (Tylenol Supp) 650 mg Q4H PRN [place] PAIN LEVEL 1-3 OR FEVER; Start 02/28/17 at 20:30 Morphine Sulfate (morphine) 1 mg Q4H PRN IV PAIN LEVEL 7-10; Start 02/28/17 at 20:30 Pantoprazole 40 mg 40 mg DAILY@06 IV Last administered on 03/01/17 05:32; Admin Dose 40 MG; Start 03/01/17 at 06:00 Heparin Sodium (Porcine) (Heparin 86958 Units/250 ml) 250 ml @ 5 mls/hr Q24H IV Last administered on 02/28/17 21:36; Admin Dose 5 MLS/HR; Start 02/28/17 at 20:00 Polyethylene Glycol (Miralax) 17 gm DAILY PRN PO CONSTIPATION Last administered on 03/01/17 04:28; Admin Dose 17 GM; Start 02/28/17 at 23:00 Digoxin (Digoxin) 250 mcg DAILY@13 IV ; Start 03/01/17 at 13:00; Status UNV Furosemide 20 mg 20 mg ONCE ONCE IV ; Start 03/01/17 at 11:00; Stop 03/01/17 at 11:01; Status UNV Magnesium Sulfate/ Dextrose (Magnesium Sulfate 1 Gm/D5W) 100 ml @ 100 mls/hr ONCE ONCE IVPB ; Start 03/01/17 at 11:00; Stop 03/01/17 at 11:59; Status UNV Assessment/Plan Chief Complaint/Hosp Course 1. Acute anterior STEMI 2./ S/P Emergent PCI LAD/ Diag, with significant stenosis of LCx and RI 3. cardiogenic shock: on IABP 4. HX HTN: now hypoensive and in shock. 5. severe ischemic cardiomyopathy: EF 15% 6. dyslipidemia 7. hx smoking 8. abnormal ECG due to above 9. severe hypoxemic resp failure: improved RECOMMENDATION: ASA 81 Brilitna 90 bid unable to start any BP meds. Cont IABP O2 heparin drip for now high dose statin diuresis as tolerated. lasxis x 1 dose now replace Mg iram angio and PCI tomorrow due to severe ischemic cardiomyopathy and hypotension Than 40 minutes of critical care time was spent in management and treatment of this patient excluding any procedures. Thank you for his referral will continue to follow along with you. MAYCO YEAGER MD [facility] Problems: MAYCO YEAGER MD Mar 01, 2017 11:13
[2017-03-01] MEDS: DIGOXIN 500 MCG INJ IV SCH (12:36)
--- NOTE | 2017-03-01 14:45 | RADRPT ---
Vent Rate: 82 bpm RR Interval: 0 msec [place] Interval: 140 msec QRS Duration: 98 msec QT Interval: 390 msec QTC Interval: 455 msec P-R-T [place]: 71 - 0 - 65 degrees Normal sinus rhythm Right superior axis deviation Possible Right ventricular hypertrophy Anteroseptal infarct , possibly acute ACUTE [place] Abnormal ECG Electronically Signed By: Cl Hudson [id number]
--- NOTE | 2017-03-01 14:45 | RADRPT ---
Vent Rate: 82 bpm RR Interval: 0 msec [place] Interval: 140 msec QRS Duration: 98 msec QT Interval: 390 msec QTC Interval: 455 msec P-R-T [place]: 71 - 0 - 65 degrees Normal sinus rhythm Right superior axis deviation Possible Right ventricular hypertrophy Anteroseptal infarct , possibly acute ACUTE [place] Abnormal ECG Electronically Signed By: Cl Hudson [id number]
--- NOTE | 2017-03-01 14:57 | RADRPT ---
Vent Rate: 89 bpm RR Interval: 0 msec [place] Interval: 136 msec QRS Duration: 110 msec QT Interval: 374 msec QTC Interval: 455 msec P-R-T [place]: 63 - 165 - -23 degrees Normal sinus rhythm Possible Right ventricular hypertrophy Anterolateral infarct , possibly acute T wave abnormality, consider inferior ischemia ACUTE [place] Abnormal ECG Electronically Signed By: Cl Hudson [id number]
--- NOTE | 2017-03-01 14:57 | RADRPT ---
Vent Rate: 89 bpm RR Interval: 0 msec [place] Interval: 136 msec QRS Duration: 110 msec QT Interval: 374 msec QTC Interval: 455 msec P-R-T [place]: 63 - 165 - -23 degrees Normal sinus rhythm Possible Right ventricular hypertrophy Anterolateral infarct , possibly acute T wave abnormality, consider inferior ischemia ACUTE [place] Abnormal ECG Electronically Signed By: Cl Hudson [id number]
--- NOTE | 2017-03-01 15:52 | PN ---
Date/Time of Note Date/Time of Note DATE: 03/01/17 TIME: 15:50 Assessment/Plan VTE Prophylaxis VTE Prophylaxis Intervention: heparin, LMWH Lines/Catheters IV Catheter Type (from Nrs): Peripheral IV Central line still needed: Yes Urinary Cath still in place: Yes Reason Cath still needed: urinary retention Assessment/Plan Chief Complaint/Hosp Course 61 yo male with STEMI and cardiogenic shock, acute on chornic systolic CHF exacerbation - IABP and pressors, for now. Wean as tolerated - Revascularization per Dr Mckeon - AC per cardiology - Aspirin, plavix, statin Problems: Subjective 24 Hr Interval Summary Free Text/Dictation Remains on IABP and low dose of levophed, MAP to 80s this AM Breathing comfortably though midly hypoxic Exam/Review of Systems Vital Signs Vitals Vital Signs Date Time Temp Pulse Resp B/P Pulse Ox O2 Delivery O2 Flow Rate FiO2 03/01/17 14:15 91 17 109/57 99 Nasal Cannula 2.0 03/01/17 12:00 98.9 Intake and Output 02/28/17 02/28/17 03/01/17 15:00 23:00 07:00 Intake Total 239.375 ml 939.251 ml Output Total 1050 ml 485 ml Balance -810.625 ml 454.251 ml Exam +++ JVD Constitutional: alert, oriented, well developed Psych: nl mood/affect, no complaints Head: atraumatic, normocephalic Eyes: EOMI, PERRL, nl conjunctiva, nl lids, nl sclera ENMT: nl external ears & nose, nl lips & teeth, nl nasal mucosa & septum Neck: non-tender, supple Respiratory: clear to auscultation, normal air movement Cardiovascular: nl pulses, regular rate and rhythm Gastrointestinal: nl liver, spleen, non-tender, soft Musculoskeletal: nl extremities to inspection, nl gait and stance Extremities: normal pulses 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, nl mental status, nl speech, nl strength Skin: nl turgor, No rash or lesions Lymph: nl lymph nodes Results Result Diagram: 03/01/17 0445 03/01/17 0445 Results 24 hrs Laboratory Tests Test 02/28/17 17:30 02/28/17 18:50 02/28/17 23:19 03/01/17 04:45 White Blood Count 13.1 H 17.1 #H Red Blood Count 4.56 L 3.87 L Hemoglobin 13.4 L 11.7 L Hematocrit 40.3 L 33.7 L Mean Corpuscular Volume 88.4 87.1 Mean Corpuscular Hemoglobin 29.4 30.2 Mean Corpuscular Hemoglobin Concent 33.3 34.7 Red Cell Distribution Width 12.9 12.9 Platelet Count 381 409 Mean Platelet Volume 10.1 10.0 Neutrophils % 72.9 82.5 H Lymphocytes % 18.7 10.6 L Monocytes % 5.1 5.3 Eosinophils % 2.5 0.8 Basophils % 0.3 0.3 Nucleated Red Blood Cells % 0.0 0.0 Neutrophils # 9.5 H 14.1 H Lymphocytes # 2.4 1.8 Monocytes # 0.7 0.9 Eosinophils # 0.3 0.1 Basophils # 0.0 0.1 Nucleated Red Blood Cells # 0.0 0.0 Prothrombin Time 12.8 Prothrombin Time Ratio 1.0 INR International Normalized Ratio 0.96 Sodium Level 143 138 Potassium Level 4.5 4.1 Chloride Level 106 107 Carbon Dioxide Level 29 24 Anion Gap 13 11 Blood Urea Nitrogen 14 12 Creatinine 0.80 0.68 Glucose Level 131 131 Calcium Level 9.6 8.3 L Total Bilirubin 0.3 0.7 Direct Bilirubin 0.00 0.00 Indirect Bilirubin 0.3 0.7 Aspartate Amino Transf (AST/SGOT) 65 H 97 H Alanine Aminotransferase (ALT/SGPT) 53 51 Alkaline Phosphatase 173 H 139 H Troponin I 3.690 *H 12.600 *H 14.000 *H Total Protein 7.6 6.2 # Albumin 3.6 2.8 L Globulin 4.00 H 3.40 H Albumin/Globulin Ratio 0.90 0.82 Blood Gas Specimen Source Blood arterial Arterial Blood Date Drawn 02/28/2017 6:58:05 PM Arterial Blood pH (Temp corrected) 7.449 Arterial Blood pCO2 (Temp correct) 33.7 L Arterial Blood pO2 (Temp corrected) 49.2 *L Arterial Blood HCO3 22.8 Arterial Blood Base Excess -0.5 Arterial Blood Oxygen Saturation 85.7 L Abel Test N/A Arterial Blood Gas Puncture Site A-Line Arterial Blood Carboxyhemoglobin 1.5 Arterial Blood Methemoglobin 0.2 Blood Gas A-a O2 Differential 146.7 H Oxyhemoglobin Percent 84.2 L Total Hemoglobin 13.5 Blood Gas Temperature 37.0 Blood Gas Modality NASAL CANNULA FiO2 33.0 Blood Gas Critical Value Read Back MELINA EDMONDSON Blood Gas Notified Whom BR Blood Gas Notified Time 02/28/2017 7:05:53 PM Hepatitis B Surface Antigen NEGATIVE Hepatitis B Core Total Antibody NEGATIVE Hepatitis C Antibody NEGATIVE HIV (1&2) Antibody NEGATIVE Creatine Kinase 608 H 658 H Creatine Kinase Index 7.7 6.2 Creatinine Kinase MB (Mass) 46.80 H 40.60 H Activated Partial Thromboplast Time 40.0 H Magnesium Level 1.7 B-Type Natriuretic Peptide 7080 H Triglycerides Level 119 Cholesterol Level 124 LDL Cholesterol, Calculated 84 HDL Cholesterol 16 L Cholesterol/HDL Ratio 7.7 Thyroid Stimulating Hormone (TSH) 0.744 Free Thyroxine 1.53 Test 03/01/17 07:00 Blood Gas Specimen Source Blood arterial Arterial Blood Date Drawn 03/01/2017 7:40:23 AM Arterial Blood pH (Temp corrected) 7.480 H Arterial Blood pCO2 (Temp correct) 28.4 L Arterial Blood pO2 (Temp corrected) 113.2 H Arterial Blood HCO3 20.7 L Arterial Blood Base Excess -1.7 Arterial Blood Oxygen Saturation 98.1 H Abel Test N/A Arterial Blood Gas Puncture Site A-Line Arterial Blood Carboxyhemoglobin 0.3 Arterial Blood Methemoglobin 0.3 Blood Gas A-a O2 Differential 175.3 H Oxyhemoglobin Percent 97.5 Total Hemoglobin 12.6 Blood Gas Temperature 37.0 Blood Gas Modality MASK - SIMPLE FiO2 45.0 Blood Gas Notified Whom TONIAD Blood Gas Notified Time 03/01/2017 8:21:10 AM Medications Medications Current Medications Aspirin (Halfprin) 81 mg DAILY PO Last administered on 03/01/17 09:07; Admin Dose 81 MG; Start 03/01/17 at 09:00 Ticagrelor (Brilinta) 90 mg BID PO Last administered on 03/01/17 09:05; Admin Dose 90 MG; Start 02/28/17 at 21:00 Acetaminophen (Tylenol Tab) 650 mg Q4H PRN PO NON-CARDIAC PAIN LEVEL 1-3; Start 02/28/17 at 19:00 Oxycodone/ Acetaminophen (Percocet (5/ 325)) 1 tab Q4H PRN PO REPORTED NON- CARDIAC PAIN 4-7; Start 02/28/17 at 19:00 Oxycodone/ Acetaminophen (Percocet (5/ 325)) 2 tab Q4H PRN PO REPORTED NON- CARDIAC PAIN 4-7; Start 02/28/17 at 19:00 Al Hydrox/Mg Hydrox/Simethicone (Mag-Al Plus) 30 ml Q4H PRN PO GASTROINTESTINAL UPSET Last administered on 02/28/17 23:04; Admin Dose 30 ML; Start 02/28/17 at 19:00 Docusate Sodium (Colace) 100 mg BID PO Last administered on 03/01/17 09:04; Admin Dose 100 MG; Start 02/28/17 at 21:00 Famotidine (Pepcid) 20 mg Q12 PO Last administered on 03/01/17 09:04; Admin Dose 20 MG; Start 02/28/17 at 21:00 Atorvastatin Calcium 80 mg 80 mg DAILY@21 PO Last administered on 02/28/17 21 :14; Admin Dose 80 MG; Start 02/28/17 at 21:00 Norepinephrine (Levophed) 250 ml @ 1.875 mls/ hr TITRATE IV Last administered on 02/28/17 20:00; Admin Dose 1.875 MLS/HR; Start 02/28/17 at 20:00 Ondansetron HCl (Zofran Inj) 4 mg Q6H PRN IV NAUSEA AND/OR VOMITING; Start at 20:30 Acetaminophen (Tylenol Supp) 650 mg Q4H PRN GA PAIN LEVEL 1-3 OR FEVER; Start 02/28/17 at 20:30 Morphine Sulfate 1 mg 1 mg Q4H PRN IV PAIN LEVEL 7-10; Start 02/28/17 at 20:30 Heparin Sodium (Porcine) (Heparin 16639 Units/250 ml) 250 ml @ 5 mls/hr Q24H IV Last administered on 02/28/17 21:36; Admin Dose 5 MLS/HR; Start 02/28/17 at 20:00 Polyethylene Glycol (Miralax) 17 gm DAILY PRN PO CONSTIPATION Last administered on 03/01/17 04:28; Admin Dose 17 GM; Start 02/28/17 at 23:00 Digoxin (Digoxin) 250 mcg DAILY@13 IV Last administered on 03/01/17 12:36; Admin Dose 250 MCG; Start 03/01/17 at 13:00 MEGAN COLEY MD Mar 01, 2017 15:51
[2017-03-01] MEDS: HEPARIN 25000 UNITS/250 ML 250 ML IV SCH (20:17)
[2017-03-01] MEDS: ATORVASTATIN 80 MG TAB PO SCH (20:42)
[2017-03-01] MEDS: NORepinephrine 8MG/250 ML (PMX 250 ML IV SCH (23:36)
[2017-03-02] VITALS (89 sets, daily range): BP systolic 80–133; BP diastolic 39–78; PULSE 69–97; RESP 9–29
[2017-03-02] MEDS ORDERED: IOHEXOL 350MG/ML 50 ML BTL ONE (06:50)
[2017-03-02] MEDS ORDERED: LIDOCAINE 1% (MDV) 20 ML INJ ONE (06:50)
[2017-03-02] MEDS ORDERED: MIDAZOLAM 1 MG/ML 2 ML INJ ONE (06:50)
[2017-03-02] MEDS ORDERED: IODIXANOL LOCM 100 ML BTL ONE (06:50)
[2017-03-02] MEDS ORDERED: BIVALIRUDIN 250MG /NS 50 ML 50 ML IVPB ONE (06:50)
[2017-03-02] MEDS ORDERED: NITROGLYCERIN (IC) 100 MCG/ML INJ ONE (06:51)
[2017-03-02] MEDS ORDERED: VERAPAMIL 5 MG INJ ONE (06:51)
[2017-03-02] MEDS ORDERED: FENTAnyl 50 MCG/ML VIAL ONE (06:51)
[2017-03-02] MEDS: TICAGRELOR 90 MG TABLET PO SCH ×2 (07:11→20:31)
[2017-03-02] MEDS: ASPIRIN (EC) 81 MG TAB PO SCH (07:12)
--- NOTE | 2017-03-02 07:17 | CONS ---
Date/Time of Note Date/Time of Note DATE: 03/02/17 TIME: 07:15 Consult Date/Type/Reason Admit Date/Time Feb 28, 2017 at 19:03 Initial Consult Date 02/28/17 Type of Consultation: interventional cardiology Ordering Provider: VENU GABRIEL MD Subjective Cardiology follow up note/ critical care note: S: Discussed with the staff and and rhythm was reviewed. Patient remains on and throughout balloon pump and on Levophed drip in ICU. Patient denies any chest pain or pressure to me. He is less hypoxemic. He denies any active bleeding or groin pain to me. O: General: on IABP in ICU on levophed HEENT: NC/AT. pupils are equal. round. NECK: + JVD. no stridor. CV: RRR. systolic murmur; no gallop or rubs. PULM: + rhonchi. GI: SOFT, NT, ND, no rebound or guarding Extremity: trace B/L LE edema. no clubbing. neuro: awake and alert, OX3. Psych: calm and pleasant rectal: deferred : s/p barker ECHO reviewed; EF 15% Objective Vital Signs Date Time Temp Pulse Resp B/P Pulse Ox O2 Delivery O2 Flow Rate FiO2 03/02/17 06:30 79 18 107/48 98 Room Air 03/02/17 04:00 99.9 03/01/17 23:15 2.0 Intake and Output 03/01/17 03/01/17 03/02/17 15:00 23:00 07:00 Intake Total 780.314 ml 894.596 ml 67.019 ml Output Total 2605 ml 1625 ml 441 ml Balance -1824.686 ml -730.404 ml -373.981 ml Results/Medications Result Diagram: 03/02/17 0445 03/02/17 0445 Results 24 hrs Laboratory Tests Test 03/02/17 04:45 White Blood Count 12.6 #H Red Blood Count 3.88 L Hemoglobin 11.4 L Hematocrit 34.1 L Mean Corpuscular Volume 87.9 Mean Corpuscular Hemoglobin 29.4 Mean Corpuscular Hemoglobin Concent 33.4 Red Cell Distribution Width 13.1 Platelet Count 412 Mean Platelet Volume 9.8 Neutrophils % 73.9 Lymphocytes % 15.7 Monocytes % 8.0 Eosinophils % 1.6 Basophils % 0.3 Nucleated Red Blood Cells % 0.0 Neutrophils # 9.3 H Lymphocytes # 2.0 Monocytes # 1.0 H Eosinophils # 0.2 Basophils # 0.0 Nucleated Red Blood Cells # 0.0 Prothrombin Time 14.0 Prothrombin Time Ratio 1.1 INR International Normalized Ratio 1.08 Activated Partial Thromboplast Time 37.8 H Sodium Level 140 Potassium Level 4.1 Chloride Level 106 Carbon Dioxide Level 27 Anion Gap 11 Blood Urea Nitrogen 11 Creatinine 0.78 Glucose Level 125 Calcium Level 8.3 L Magnesium Level 2.2 Total Bilirubin 0.7 Direct Bilirubin 0.00 Indirect Bilirubin 0.7 Aspartate Amino Transf (AST/SGOT) 54 H Alanine Aminotransferase (ALT/SGPT) 39 Alkaline Phosphatase 139 H Creatine Kinase 252 #H Creatine Kinase Index 2.2 Creatinine Kinase MB (Mass) 5.53 H Troponin I 7.960 *H B-Type Natriuretic Peptide 4420 H Total Protein 6.5 Albumin 2.9 L Globulin 3.60 H Albumin/Globulin Ratio 0.80 Medications Current Medications Aspirin (Halfprin) 81 mg DAILY PO Last administered on 03/02/17 07:12; Admin Dose 81 MG; Start 03/01/17 at 09:00 Ticagrelor (Brilinta) 90 mg BID PO Last administered on 03/02/17 07:11; Admin Dose 90 MG; Start 02/28/17 at 21:00 Acetaminophen (Tylenol Tab) 650 mg Q4H PRN PO NON-CARDIAC PAIN LEVEL 1-3; Start 02/28/17 at 19:00 Oxycodone/ Acetaminophen (Percocet (5/ 325)) 1 tab Q4H PRN PO REPORTED NON- CARDIAC PAIN 4-7; Start 02/28/17 at 19:00 Oxycodone/ Acetaminophen (Percocet (5/ 325)) 2 tab Q4H PRN PO REPORTED NON- CARDIAC PAIN 4-7; Start 02/28/17 at 19:00 Al Hydrox/Mg Hydrox/Simethicone (Mag-Al Plus) 30 ml Q4H PRN PO GASTROINTESTINAL UPSET Last administered on 02/28/17 23:04; Admin Dose 30 ML; Start 02/28/17 at 19:00 Docusate Sodium (Colace) 100 mg BID PO Last administered on 03/01/17 20:42; Admin Dose 100 MG; Start 02/28/17 at 21:00 Famotidine (Pepcid) 20 mg Q12 PO Last administered on 03/01/17 20:42; Admin Dose 20 MG; Start 02/28/17 at 21:00 Atorvastatin Calcium 80 mg 80 mg DAILY@21 PO Last administered on 03/01/17 20 :42; Admin Dose 80 MG; Start 02/28/17 at 21:00 Norepinephrine (Levophed) 250 ml @ 1.875 mls/ hr TITRATE IV Last administered on 03/01/17 23:36; Admin Dose 0.938 MLS/HR; Start 02/28/17 at 20:00 Ondansetron HCl (Zofran Inj) 4 mg Q6H PRN IV NAUSEA AND/OR VOMITING; Start at 20:30 Acetaminophen (Tylenol Supp) 650 mg Q4H PRN RI PAIN LEVEL 1-3 OR FEVER; Start 02/28/17 at 20:30 Morphine Sulfate 1 mg 1 mg Q4H PRN IV PAIN LEVEL 7-10; Start 02/28/17 at 20:30 Heparin Sodium (Porcine) (Heparin 34346 Units/250 ml) 250 ml @ 5 mls/hr Q24H IV Last administered on 03/01/17 20:17; Admin Dose 5 MLS/HR; Start 02/28/17 at 20:00 Polyethylene Glycol (Miralax) 17 gm DAILY PRN PO CONSTIPATION Last administered on 03/01/17 04:28; Admin Dose 17 GM; Start 02/28/17 at 23:00 Digoxin (Digoxin) 250 mcg DAILY@13 IV Last administered on 03/01/17 12:36; Admin Dose 250 MCG; Start 03/01/17 at 13:00 Assessment/Plan Chief Complaint/Hosp Course 1. Acute anterior STEMI 2. S/P Emergent PCI LAD/ Diag, with significant stenosis of LCx and RI 3. cardiogenic shock: on IABP 4. HX HTN: now hypoensive and in shock. 5. severe ischemic cardiomyopathy: EF 15% 6. dyslipidemia 7. hx smoking 8. abnormal ECG due to above 9. severe hypoxemic resp failure: improved RECOMMENDATION: ASA 81 Brilitna 90 bid still unable to start any BP meds. Cont IABP for now but will try to remove CARRILLO. O2 heparin drip for now high dose statin diuresis as tolerated. lasxis x 1 dose now replace Mg iram angio and PCI today due to severe ischemic cardiomyopathy and persistent hypotension and cardiogenic shock Than 40 minutes of critical care time was spent in management and treatment of this patient excluding any procedures. Thank you for his referral will continue to follow along with you. MAYCO YEAGER MD [facility] Problems: MAYCO YEAGER MD Mar 02, 2017 07:17
--- NOTE | 2017-03-02 08:49 | OPR ---
Date/Time of Note Date/Time of Note DATE: 03/02/17 TIME: 08:42 Operative Report Procedure Date: Mar 02, 2017 Preoperative Diagnosis [place]. ischemic cardiomyopathy. persistent cardiogenic shock Postoperative Diagnosis same Surgeon see signature line No Experience n/a Anesthesia Type: moderate sedation Estimated Blood Loss: none Transfusion none Specimen none Grafts/Implants none Complications none Procedure Description Otr Owner Operator: Mayco Saab MD Indication: [place], multivessel CAD, Cardiogenic shock Procure performed: #1 left heart catheterization and selective left coronary angiogram. #2 left femoral angiogram and closure using a perclose device. 3. Successful PTCA and stenting of mid LCX2.5X30 mm [place] NEW 4. Successful PTCA of ostial/ proximal RI 4. Moderate sedation for more than 75 minutes Findings: 1. Left main: is long and trirfurcates to LAD & LCX, RI. it has 30% distal stenosis 2. LAD: is long previous stent is patent with BENITA III flow. 3. Left circumflex artery: is nondominant. it has 80-90% mid stenosis ---->0% post PCI 4. Ramus intermediate: is a moderate vessel with 90% ostial and 80 proximal stenosis ----=> 20% post PTCA Procedure in detail: Written informed consent with obtained after risks benefits and alternatives discussed with the patient in detail. risks including but not limited to risk of infection vascular complications, bleeding complications, [place] stroke arrhythmia renal failure at even were discussed with the patient in detail. Patient was brought into the cardiac blood bank laboratory professional and placed in supine position. left groin area was prepped and draped in regular sterile fashion and then he was in anesthetized using 1% lidocaine. Left femoral artery was cannulated and using modified seldinger technique a German sheath was placed in the right femoral artery. femoral angiogram was performed. perclose was place as "preclose" changed a sheath to a 7 F sheath. Pigtail was advanced to engage the left ventricle hemodynamics as recorded by pullback aortic pressure was measured. At this time we decided to perform PCI of the LCX/ RI. A Voda 3.5 guiding head was advanced to engage the artery. BMW wire was used and advanced across the lesion and placed distal to the artery in LCX and another BMW wire was used in cross into the distal ramus intermedius lesion.. I used a 2 x 12 mm balloon which was placed across the lesion and predilated the vessel, first left circumflex artery and then moved the balloon to the second wire into the ramus intermediate.. Then I used a 2.5 x 30 mm alie drug-eluting stent which was placed across the lesion and left circumflex artery and deployed at 14 jan. It was decided not to stent the ramus intermedius ostial lesion so that I do not jeopardize to the LAD and left circumflex arteries Final angiographic view was obtained which showed BENITA-3 flow no evidence of dissection and no significant residual stenosis at the site of the stent. perclose was successfully deployed. Patient tolerated the procedure well with no complication. Patient was transferred to ICU in stable condition. Conclusions: Successful PTCA stenting of the left circumflex artery from 80-90% stenosis to no significant residual stenosis using a 2.5 x 30 mm alie stent. Successful angioplasty of the ostial/proximal ramus intermediate Recommendations: Aggressive medical therapy. aspirin indefinitely dual antiplatlet therapy with ASA/ Brilinta for at least a year. ICU care overnight. MAYCO SAAB MD Mar 02, 2017 08:49
--- NOTE | 2017-03-02 08:49 | OPR ---
Date/Time of Note Date/Time of Note DATE: 03/02/17 TIME: 08:42 Operative Report Procedure Date: Mar 02, 2017 Preoperative Diagnosis [place]. ischemic cardiomyopathy. persistent cardiogenic shock Postoperative Diagnosis same Surgeon see signature line Public Relations n/a Anesthesia Type: moderate sedation Estimated Blood Loss: none Transfusion none Specimen none Grafts/Implants none Complications none Procedure Description Certified Midwife: Mayco Saab MD Indication: [place], multivessel CAD, Cardiogenic shock Procure performed: #1 left heart catheterization and selective left coronary angiogram. #2 left femoral angiogram and closure using a perclose device. 3. Successful PTCA and stenting of mid LCX2.5X30 mm [place] NEW 4. Successful PTCA of ostial/ proximal RI 4. Moderate sedation for more than 75 minutes Findings: 1. Left main: is long and trirfurcates to LAD & LCX, RI. it has 30% distal stenosis 2. LAD: is long previous stent is patent with BENITA III flow. 3. Left circumflex artery: is nondominant. it has 80-90% mid stenosis ---->0% post PCI 4. Ramus intermediate: is a moderate vessel with 90% ostial and 80 proximal stenosis ----=> 20% post PTCA Procedure in detail: Written informed consent with obtained after risks benefits and alternatives discussed with the patient in detail. risks including but not limited to risk of infection vascular complications, bleeding complications, [place] stroke arrhythmia renal failure at even were discussed with the patient in detail. Patient was brought into the cardiac can labeler and placed in supine position. left groin area was prepped and draped in regular sterile fashion and then he was in anesthetized using 1% lidocaine. Left femoral artery was cannulated and using modified seldinger technique a [place] sheath was placed in the right femoral artery. femoral angiogram was performed. perclose was place as "preclose" changed a sheath to a 7 F sheath. Pigtail was advanced to engage the left ventricle hemodynamics as recorded by pullback aortic pressure was measured. At this time we decided to perform PCI of the LCX/ RI. A Voda 3.5 guiding head was advanced to engage the artery. BMW wire was used and advanced across the lesion and placed distal to the artery in LCX and another BMW wire was used in cross into the distal ramus intermedius lesion.. I used a 2 x 12 mm balloon which was placed across the lesion and predilated the vessel, first left circumflex artery and then moved the balloon to the second wire into the ramus intermediate.. Then I used a 2.5 x 30 mm alie drug-eluting stent which was placed across the lesion and left circumflex artery and deployed at 14 jan. It was decided not to stent the ramus intermedius ostial lesion so that I do not jeopardize to the LAD and left circumflex arteries Final angiographic view was obtained which showed BENITA-3 flow no evidence of dissection and no significant residual stenosis at the site of the stent. perclose was successfully deployed. Patient tolerated the procedure well with no complication. Patient was transferred to ICU in stable condition. Conclusions: Successful PTCA stenting of the left circumflex artery from 80-90% stenosis to no significant residual stenosis using a 2.5 x 30 mm alie stent. Successful angioplasty of the ostial/proximal ramus intermediate Recommendations: Aggressive medical therapy. aspirin indefinitely dual antiplatlet therapy with ASA/ Brilinta for at least a year. ICU care overnight. MAYCO SAAB MD Mar 02, 2017 08:49
--- NOTE | 2017-03-02 08:53 | RADRPT ---
PROCEDURE: XR Chest. CLINICAL INDICATION: Shortness of breath. TECHNIQUE: Single frontal view. COMPARISON: 03/01/2017. FINDINGS: There is an intra-aortic balloon with the tip in the mid descending aorta. There is mild pulmonary e petra, improved. The lungs are otherwise clear. The heart is enlarged. There is no pleural effusion. There is no pneumothorax. IMPRESSION: 1. Intra-aortic balloon pump tip in the mid descending aorta. 2. Mild pulmonary edema, improved. 3. Cardiomegaly. 4. No other change from the 03/01/2017 chest radiograph. RPTAT: QQ .Mane Desai MD, MD Date Time Electronically viewed and signed by .Mane Desai MD, MD on 03/02/2017 08:53 .R/
[2017-03-02] MEDS ORDERED: SOD CHLORIDE 0.45% 1,000 ML IV SCH (09:00)
[2017-03-02] MEDS: FAMOTIDINE 20 MG TAB PO SCH ×2 (09:40→20:30)
[2017-03-02] MEDS: DOCUSATE SODIUM 100 MG CAP PO SCH ×2 (09:40→20:30)
[2017-03-02] MEDS: HEPARIN 25000 UNITS/250 ML 250 ML IV SCH ×2 (10:00→21:13)
[2017-03-02] MEDS: DIGOXIN 500 MCG INJ IV SCH (13:37)
--- NOTE | 2017-03-02 13:43 | PN ---
Date/Time of Note Date/Time of Note DATE: 03/02/17 TIME: 13:42 Assessment/Plan VTE Prophylaxis VTE Prophylaxis Intervention: LMWH Lines/Catheters IV Catheter Type (from Nrs): Peripheral IV Urinary Cath still in place: Yes Reason Cath still needed: urinary retention Assessment/Plan Chief Complaint/Hosp Course 61 yo male with STEMI and cardiogenic shock, acute on chornic systolic CHF exacerbation - IABP and pressors, for now. Wean as tolerated - Revascularization per Dr Mckeon - AC per cardiology - Aspirin, plavix, statin Problems: Subjective 24 Hr Interval Summary Free Text/Dictation Underwent PCI this AM as still in shock Seen after, feels well no cmoplaints Remains on levophed and IABP Exam/Review of Systems Vital Signs Vitals Vital Signs Date Time Temp Pulse Resp B/P Pulse Ox O2 Delivery O2 Flow Rate FiO2 03/02/17 13:00 76 21 107/49 99 Room Air 03/02/17 12:00 98.8 03/01/17 23:15 2.0 Intake and Output 03/01/17 03/01/17 03/02/17 15:00 23:00 07:00 Intake Total 780.314 ml 894.596 ml 67.019 ml Output Total 2605 ml 1625 ml 441 ml Balance -1824.686 ml -730.404 ml -373.981 ml Exam Constitutional: alert, oriented, well developed Psych: nl mood/affect, no complaints Head: atraumatic, normocephalic Eyes: EOMI, PERRL, nl conjunctiva, nl lids, nl sclera ENMT: nl external ears & nose, nl lips & teeth, nl nasal mucosa & septum Neck: non-tender, supple Respiratory: clear to auscultation, normal air movement Cardiovascular: nl pulses, regular rate and rhythm Gastrointestinal: nl liver, spleen, non-tender, soft Musculoskeletal: nl extremities to inspection, nl gait and stance Extremities: normal pulses 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, nl mental status, nl speech, nl strength Skin: nl turgor, No rash or lesions Lymph: nl lymph nodes Results Result Diagram: 03/02/175 03/02/175 Results 24 hrs Laboratory Tests Test 03/02/17 04:45 White Blood Count 12.6 #H Red Blood Count 3.88 L Hemoglobin 11.4 L Hematocrit 34.1 L Mean Corpuscular Volume 87.9 Mean Corpuscular Hemoglobin 29.4 Mean Corpuscular Hemoglobin Concent 33.4 Red Cell Distribution Width 13.1 Platelet Count 412 Mean Platelet Volume 9.8 Neutrophils % 73.9 Lymphocytes % 15.7 Monocytes % 8.0 Eosinophils % 1.6 Basophils % 0.3 Nucleated Red Blood Cells % 0.0 Neutrophils # 9.3 H Lymphocytes # 2.0 Monocytes # 1.0 H Eosinophils # 0.2 Basophils # 0.0 Nucleated Red Blood Cells # 0.0 Prothrombin Time 14.0 Prothrombin Time Ratio 1.1 INR International Normalized Ratio 1.08 Activated Partial Thromboplast Time 37.8 H Sodium Level 140 Potassium Level 4.1 Chloride Level 106 Carbon Dioxide Level 27 Anion Gap 11 Blood Urea Nitrogen 11 Creatinine 0.78 Glucose Level 125 Calcium Level 8.3 L Magnesium Level 2.2 Total Bilirubin 0.7 Direct Bilirubin 0.00 Indirect Bilirubin 0.7 Aspartate Amino Transf (AST/SGOT) 54 H Alanine Aminotransferase (ALT/SGPT) 39 Alkaline Phosphatase 139 H Creatine Kinase 252 #H Creatine Kinase Index 2.2 Creatinine Kinase MB (Mass) 5.53 H Troponin I 7.960 *H B-Type Natriuretic Peptide 4420 H Total Protein 6.5 Albumin 2.9 L Globulin 3.60 H Albumin/Globulin Ratio 0.80 Medications Medications Current Medications Aspirin (Halfprin) 81 mg DAILY PO Last administered on 03/02/17 07:12; Admin Dose 81 MG; Start 03/01/17 at 09:00 Ticagrelor (Brilinta) 90 mg BID PO Last administered on 03/02/17 07:11; Admin Dose 90 MG; Start 02/28/17 at 21:00 Acetaminophen (Tylenol Tab) 650 mg Q4H PRN PO NON-CARDIAC PAIN LEVEL 1-3; Start 02/28/17 at 19:00 Oxycodone/ Acetaminophen (Percocet (5/ 325)) 1 tab Q4H PRN PO REPORTED NON- CARDIAC PAIN 4-7; Start 02/28/17 at 19:00 Oxycodone/ Acetaminophen (Percocet (5/ 325)) 2 tab Q4H PRN PO REPORTED NON- CARDIAC PAIN 4-7; Start 02/28/17 at 19:00 Al Hydrox/Mg Hydrox/Simethicone (Mag-Al Plus) 30 ml Q4H PRN PO GASTROINTESTINAL UPSET Last administered on 02/28/17 23:04; Admin Dose 30 ML; Start 02/28/17 at 19:00 Docusate Sodium (Colace) 100 mg BID PO Last administered on 03/02/17 09:40; Admin Dose 100 MG; Start 02/28/17 at 21:00 Famotidine (Pepcid) 20 mg Q12 PO Last administered on 03/02/17 09:40; Admin Dose 20 MG; Start 02/28/17 at 21:00 Atorvastatin Calcium 80 mg 80 mg DAILY@21 PO Last administered on 03/01/17 20 :42; Admin Dose 80 MG; Start 02/28/17 at 21:00 Norepinephrine (Levophed) 250 ml @ 1.875 mls/ hr TITRATE IV Last administered on 03/01/17 23:36; Admin Dose 0.938 MLS/HR; Start 02/28/17 at 20:00 Ondansetron HCl (Zofran Inj) 4 mg Q6H PRN IV NAUSEA AND/OR VOMITING; Start at 20:30 Acetaminophen (Tylenol Supp) 650 mg Q4H PRN [place] PAIN LEVEL 1-3 OR FEVER; Start 02/28/17 at 20:30 Morphine Sulfate (morphine) 1 mg Q4H PRN IV PAIN LEVEL 7-10; Start 02/28/17 at 20:30 Polyethylene Glycol (Miralax) 17 gm DAILY PRN PO CONSTIPATION Last administered on 03/01/17 04:28; Admin Dose 17 GM; Start 02/28/17 at 23:00 Digoxin 250 mcg 250 mcg DAILY@13 IV Last administered on 03/02/17 13:37; Admin Dose 250 MCG; Start 03/01/17 at 13:00 Sodium Chloride 1,000 ml @ 50 mls/hr Q20H IV Last administered on 03/02/17 09 :20; Admin Dose 50 MLS/HR; Start 03/02/17 at 09:00; Stop 03/02/17 at 16:59 Heparin Sodium (Porcine) (Heparin 27553 Units/250 ml) 250 ml @ 6 mls/hr Q24H IV Last administered on 03/02/17 10:00; Admin Dose 6 MLS/HR; Start 03/02/17 at 09:30 MEGAN COLEY MD Mar 02, 2017 13:43
[2017-03-02] MEDS: ATORVASTATIN 80 MG TAB PO SCH (20:30)
[2017-03-02] MEDS: NORepinephrine 8MG/250 ML (PMX 250 ML IV SCH (23:31)
[2017-03-03] VITALS (65 sets, daily range): BP systolic 88–123; BP diastolic 39–81; PULSE 72–114; RESP 10–31
[2017-03-03] MEDS: AL HYDROX/MG HYDROX/SIMETH 30 ML CUP PO PRN (01:26)
--- NOTE | 2017-03-03 07:10 | CONS ---
Date/Time of Note Date/Time of Note DATE: 03/03/17 TIME: 07:06 Consult Date/Type/Reason Admit Date/Time Feb 28, 2017 at 19:03 Initial Consult Date 02/28/17 Type of Consultation: interventional cardiology Ordering Provider: VENU GABRIEL MD Subjective Cardiology follow up note/ critical care note: S: Discussed with the staff and and rhythm was reviewed. Patient remains on and IABP but was able to be weaned off Levophed drip. he is still in ICU. Patient denies any chest pain or pressure to me. He is less hypoxemic. He denies any active bleeding or groin pain to me. he does not like to have the barker in. O: General: on IABP in ICU HEENT: NC/AT. pupils are equal. round. NECK: + JVD. no stridor. CV: RRR. systolic murmur; no gallop or rubs. PULM: + min rhonchi. GI: SOFT, NT, ND, no rebound or guarding Extremity: trace B/L LE edema. no clubbing. neuro: awake and alert, OX3. Psych: calm and pleasant rectal: deferred : s/p barker vascular: R fem IABP no bleeding or hematoma left s/p perclose closure. no bleeding or hematoma. ECHO reviewed; EF 15% CXR reviewed Objective Vital Signs Date Time Temp Pulse Resp B/P Pulse Ox O2 Delivery O2 Flow Rate FiO2 03/03/17 06:30 90 13 106/60 96 Room Air 03/03/17 04:00 98.8 03/01/17 23:15 2.0 Intake and Output 03/02/17 03/02/17 03/03/17 15:00 23:00 07:00 Intake Total 1370.109 ml 516.126 ml 295.969 ml Output Total 1115 ml 1260 ml 695 ml Balance 255.109 ml -743.874 ml -399.031 ml Results/Medications Result Diagram: 03/03/17 0434 03/03/17 0434 Results 24 hrs Laboratory Tests Test 03/03/17 04:34 White Blood Count 11.3 H Red Blood Count 3.82 L Hemoglobin 11.1 L Hematocrit 33.5 L Mean Corpuscular Volume 87.7 Mean Corpuscular Hemoglobin 29.1 Mean Corpuscular Hemoglobin Concent 33.1 Red Cell Distribution Width 13.2 Platelet Count 419 H Mean Platelet Volume 9.6 Neutrophils % 71.2 Lymphocytes % 18.6 Monocytes % 7.4 Eosinophils % 2.0 Basophils % 0.4 Nucleated Red Blood Cells % 0.0 Neutrophils # 8.1 H Lymphocytes # 2.1 Monocytes # 0.8 Eosinophils # 0.2 Basophils # 0.0 Nucleated Red Blood Cells # 0.0 Activated Partial Thromboplast Time 39.9 H Sodium Level 141 Potassium Level 4.1 Chloride Level 108 Carbon Dioxide Level 24 Anion Gap 13 Blood Urea Nitrogen 11 Creatinine 0.70 Glucose Level 111 Calcium Level 8.3 L Magnesium Level 2.1 Total Bilirubin 0.4 Direct Bilirubin 0.00 Indirect Bilirubin 0.4 Aspartate Amino Transf (AST/SGOT) 35 Alanine Aminotransferase (ALT/SGPT) 33 Alkaline Phosphatase 140 H Creatine Kinase 124 Creatine Kinase Index 1.8 Creatinine Kinase MB (Mass) 2.19 Troponin I 4.190 *H B-Type Natriuretic Peptide 4710 H Total Protein 6.5 Albumin 3.1 L Globulin 3.40 H Albumin/Globulin Ratio 0.91 Medications Current Medications Aspirin (Halfprin) 81 mg DAILY PO Last administered on 03/02/17 07:12; Admin Dose 81 MG; Start 03/01/17 at 09:00 Ticagrelor (Brilinta) 90 mg BID PO Last administered on 03/02/17 20:31; Admin Dose 90 MG; Start 02/28/17 at 21:00 Acetaminophen (Tylenol Tab) 650 mg Q4H PRN PO NON-CARDIAC PAIN LEVEL 1-3; Start 02/28/17 at 19:00 Oxycodone/ Acetaminophen (Percocet (5/ 325)) 1 tab Q4H PRN PO REPORTED NON- CARDIAC PAIN 4-7; Start 02/28/17 at 19:00 Oxycodone/ Acetaminophen (Percocet (5/ 325)) 2 tab Q4H PRN PO REPORTED NON- CARDIAC PAIN 4-7; Start 02/28/17 at 19:00 Al Hydrox/Mg Hydrox/Simethicone (Mag-Al Plus) 30 ml Q4H PRN PO GASTROINTESTINAL UPSET Last administered on 03/03/17 01:26; Admin Dose 30 ML; Start 02/28/17 at 19:00 Docusate Sodium (Colace) 100 mg BID PO Last administered on 03/02/17 20:30; Admin Dose 100 MG; Start 02/28/17 at 21:00 Famotidine (Pepcid) 20 mg Q12 PO Last administered on 03/02/17 20:30; Admin Dose 20 MG; Start 02/28/17 at 21:00 Atorvastatin Calcium 80 mg 80 mg DAILY@21 PO Last administered on 03/02/17 20: 30; Admin Dose 80 MG; Start 02/28/17 at 21:00 Norepinephrine (Levophed) 250 ml @ 1.875 mls/ hr TITRATE IV Last administered on 03/02/17 23:31; Admin Dose 5.25 MLS/HR; Start 02/28/17 at 20:00 Ondansetron HCl (Zofran Inj) 4 mg Q6H PRN IV NAUSEA AND/OR VOMITING; Start at 20:30 Acetaminophen (Tylenol Supp) 650 mg Q4H PRN [place] PAIN LEVEL 1-3 OR FEVER; Start 02/28/17 at 20:30 Morphine Sulfate (morphine) 1 mg Q4H PRN IV PAIN LEVEL 7-10; Start 02/28/17 at 20:30 Polyethylene Glycol (Miralax) 17 gm DAILY PRN PO CONSTIPATION Last administered on 03/01/17 04:28; Admin Dose 17 GM; Start 02/28/17 at 23:00 Digoxin 250 mcg 250 mcg DAILY@13 IV Last administered on 03/02/17 13:37; Admin Dose 250 MCG; Start 03/01/17 at 13:00 Heparin Sodium (Porcine) (Heparin 59390 Units/250 ml) 250 ml @ 6 mls/hr Q24H IV Last administered on 03/02/17 21:13; Admin Dose 6 MLS/HR; Start 03/02/17 at 09:30 Assessment/Plan Chief Complaint/Hosp Course 1. Acute anterior STEMI 2. S/P Emergent PCI LAD/ Diag 02/28/17,, s/p PCI LCx and RI 03/02/17 3. cardiogenic shock: on IABP: BP has improved now. 4. HX HTN: now hypotensive and in shock. 5. severe ischemic cardiomyopathy: EF 15% 6. dyslipidemia 7. hx smoking 8. abnormal ECG due to above 9. severe hypoxemic resp failure: improved RECOMMENDATION: ASA 81 cont Brilitna 90 bid still unable to start any BP meds. will place IABP on 2:1 for now and remove today if BP remains stable. O2 dc heparin drip for now cont high dose statin diuresis as tolerated/ needed, replace Mg and K prn Than 39 minutes of critical care time was spent in management and treatment of this patient excluding any procedures. Thank you for his referral will continue to follow along with you. MAYCO YEAGER MD [facility] Problems: MAYCO YEAGER MD Mar 03, 2017 07:10
--- NOTE | 2017-03-03 07:14 | RADRPT ---
PROCEDURE: XR Chest. CLINICAL INDICATION: Intra-aortic balloon pump placement follow-up TECHNIQUE: AP Portable chest. COMPARISON: Chest x-ray 03/02/2017 FINDINGS: The soft tissues and bones are remarkable for an intra-aortic balloon pump tip in the mid descending thoracic aorta. No focal infiltrates, masses, or effusions are noted. The mediastinum and heart a re remarkable for mild cardiomegaly. No significant interval change is noted in the pulmonary inter stitium.No pneumothorax is present. IMPRESSION: 1. No significant interval change when compared with 03/02/2017. 2. Intra-aortic balloon pump in the mid descending thoracic aorta. 3. Mild cardiomegaly and mild interstitial edema RPTAT: HDC .Jyothi Aguirre MD, Date Time Electronically viewed and signed by .Jyothi Aguirre MD, on 03/03/2017 07:13 .C/
--- NOTE | 2017-03-03 07:24 | EN ---
Date/Time of Note Date/Time of Note DATE: 03/03/17 TIME: 07:23 Event Note Cardiology Cardiology Event Note IABP was personally removed with no events. BP remains stable. sheath to be removed per protocol once ACT is appropriately low. MAYCO YEAGER MD [facility] MAYCO YEAGER MD Mar 03, 2017 07:24
--- NOTE | 2017-03-03 07:24 | EN ---
Date/Time of Note Date/Time of Note DATE: 03/03/17 TIME: 07:23 Event Note Cardiology Cardiology Event Note IABP was personally removed with no events. BP remains stable. sheath to be removed per protocol once ACT is appropriately low. MAYCO YEAGER MD [facility] MAYCO YEAGER MD Mar 03, 2017 07:24
[2017-03-03] MEDS: DOCUSATE SODIUM 100 MG CAP PO SCH ×2 (09:18→21:08)
[2017-03-03] MEDS: TICAGRELOR 90 MG TABLET PO SCH ×2 (09:18→21:07)
[2017-03-03] MEDS: FAMOTIDINE 20 MG TAB PO SCH ×2 (09:18→21:08)
[2017-03-03] MEDS: ASPIRIN (EC) 81 MG TAB PO SCH (09:18)
[2017-03-03] MEDS: DIGOXIN 500 MCG INJ IV SCH (13:41)
--- NOTE | 2017-03-03 14:15 | PN ---
Date/Time of Note Date/Time of Note DATE: 03/03/17 TIME: 14:12 Assessment/Plan VTE Prophylaxis VTE Prophylaxis Intervention: LMWH Lines/Catheters IV Catheter Type (from Nrs): ART SHEATH Urinary Cath still in place: Yes Reason Cath still needed: other (indicate) Assessment/Plan Chief Complaint/Hosp Course 61 yo male with STEMI and cardiogenic shock, s/p PCI CAD w STEMI: - s/p IABP removed, pressors off - s/p PCI - Continue DAPT, statin Acute systolic CHF exacerbation: - Diuresis with lasix 20 Problems: Subjective 24 Hr Interval Summary Free Text/Dictation Stroke evident in posterior circulation on CT, suggestive of cardioembolism Today feels well, seems vision has improved Per daughter, patient has been increasingly confused over past few months Exam/Review of Systems Vital Signs Vitals Vital Signs Date Time Temp Pulse Resp B/P Pulse Ox O2 Delivery O2 Flow Rate FiO2 03/03/17 12:00 88 16 98/75 99 Room Air 03/03/17 11:00 98.7 03/01/17 23:15 2.0 Intake and Output 03/02/17 03/02/17 03/03/17 15:00 23:00 07:00 Intake Total 1370.109 ml 516.126 ml 295.969 ml Output Total 1115 ml 1260 ml 695 ml Balance 255.109 ml -743.874 ml -399.031 ml Exam Constitutional: alert, oriented, well developed Psych: nl mood/affect, no complaints Head: atraumatic, normocephalic Eyes: EOMI, PERRL, nl conjunctiva, nl lids, nl sclera ENMT: nl external ears & nose, nl lips & teeth, nl nasal mucosa & septum Neck: non-tender, supple Respiratory: clear to auscultation, normal air movement Cardiovascular: nl pulses, regular rate and rhythm Gastrointestinal: nl liver, spleen, non-tender, soft Musculoskeletal: nl extremities to inspection, nl gait and stance Extremities: normal pulses 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, nl mental status, nl speech, nl strength Skin: nl turgor, No rash or lesions Lymph: nl lymph nodes Results Result Diagram: 03/03/17 0434 03/03/17 0434 Results 24 hrs Laboratory Tests Test 03/03/17 04:34 White Blood Count 11.3 H Red Blood Count 3.82 L Hemoglobin 11.1 L Hematocrit 33.5 L Mean Corpuscular Volume 87.7 Mean Corpuscular Hemoglobin 29.1 Mean Corpuscular Hemoglobin Concent 33.1 Red Cell Distribution Width 13.2 Platelet Count 419 H Mean Platelet Volume 9.6 Neutrophils % 71.2 Lymphocytes % 18.6 Monocytes % 7.4 Eosinophils % 2.0 Basophils % 0.4 Nucleated Red Blood Cells % 0.0 Neutrophils # 8.1 H Lymphocytes # 2.1 Monocytes # 0.8 Eosinophils # 0.2 Basophils # 0.0 Nucleated Red Blood Cells # 0.0 Activated Partial Thromboplast Time 39.9 H Sodium Level 141 Potassium Level 4.1 Chloride Level 108 Carbon Dioxide Level 24 Anion Gap 13 Blood Urea Nitrogen 11 Creatinine 0.70 Glucose Level 111 Calcium Level 8.3 L Magnesium Level 2.1 Total Bilirubin 0.4 Direct Bilirubin 0.00 Indirect Bilirubin 0.4 Aspartate Amino Transf (AST/SGOT) 35 Alanine Aminotransferase (ALT/SGPT) 33 Alkaline Phosphatase 140 H Creatine Kinase 124 Creatine Kinase Index 1.8 Creatinine Kinase MB (Mass) 2.19 Troponin I 4.190 *H B-Type Natriuretic Peptide 4710 H Total Protein 6.5 Albumin 3.1 L Globulin 3.40 H Albumin/Globulin Ratio 0.91 Medications Medications Current Medications Aspirin (Halfprin) 81 mg DAILY PO Last administered on 03/03/17 09:18; Admin Dose 81 MG; Start 03/01/17 at 09:00 Ticagrelor (Brilinta) 90 mg BID PO Last administered on 03/03/17 09:18; Admin Dose 90 MG; Start 02/28/17 at 21:00 Acetaminophen (Tylenol Tab) 650 mg Q4H PRN PO NON-CARDIAC PAIN LEVEL 1-3; Start 02/28/17 at 19:00 Oxycodone/ Acetaminophen (Percocet (5/ 325)) 1 tab Q4H PRN PO REPORTED NON- CARDIAC PAIN 4-7; Start 02/28/17 at 19:00 Oxycodone/ Acetaminophen (Percocet (5/ 325)) 2 tab Q4H PRN PO REPORTED NON- CARDIAC PAIN 4-7; Start 02/28/17 at 19:00 Al Hydrox/Mg Hydrox/Simethicone (Mag-Al Plus) 30 ml Q4H PRN PO GASTROINTESTINAL UPSET Last administered on 03/03/17 01:26; Admin Dose 30 ML; Start 02/28/17 at 19:00 Docusate Sodium (Colace) 100 mg BID PO Last administered on 03/03/17 09:18; Admin Dose 100 MG; Start 02/28/17 at 21:00 Famotidine (Pepcid) 20 mg Q12 PO Last administered on 03/03/17 09:18; Admin Dose 20 MG; Start 02/28/17 at 21:00 Atorvastatin Calcium 80 mg 80 mg DAILY@21 PO Last administered on 03/02/17 20: 30; Admin Dose 80 MG; Start 02/28/17 at 21:00 Norepinephrine (Levophed) 250 ml @ 1.875 mls/ hr TITRATE IV Last administered on 03/02/17 23:31; Admin Dose 5.25 MLS/HR; Start 02/28/17 at 20:00 Ondansetron HCl (Zofran Inj) 4 mg Q6H PRN IV NAUSEA AND/OR VOMITING; Start at 20:30 Acetaminophen (Tylenol Supp) 650 mg Q4H PRN [place] PAIN LEVEL 1-3 OR FEVER; Start 02/28/17 at 20:30 Morphine Sulfate (morphine) 1 mg Q4H PRN IV PAIN LEVEL 7-10; Start 02/28/17 at 20:30 Polyethylene Glycol (Miralax) 17 gm DAILY PRN PO CONSTIPATION Last administered on 03/01/17 04:28; Admin Dose 17 GM; Start 02/28/17 at 23:00 Digoxin (Digoxin) 250 mcg DAILY@13 IV Last administered on 03/03/17 13:41; Admin Dose 250 MCG; Start 03/01/17 at 13:00 MEGAN COLEY MD Mar 03, 2017 14:15
[2017-03-03] MEDS: FUROSEMIDE 20 MG INJ IV SCH (18:44)
[2017-03-03] MEDS: ATORVASTATIN 80 MG TAB PO SCH (21:06)
[2017-03-04] VITALS (37 sets, daily range): BP systolic 74–106; BP diastolic 56–78; PULSE 72–97; RESP 11–29
[2017-03-04] MEDS: FUROSEMIDE 20 MG INJ IV SCH (06:00)
[2017-03-04] MEDS: FAMOTIDINE 20 MG TAB PO SCH (08:11)
[2017-03-04] MEDS: ASPIRIN (EC) 81 MG TAB PO SCH (08:11)
[2017-03-04] MEDS: DOCUSATE SODIUM 100 MG CAP PO SCH (08:11)
[2017-03-04] MEDS: TICAGRELOR 90 MG TABLET PO SCH ×2 (08:12→21:10)
--- NOTE | 2017-03-04 12:03 | CONS ---
Date/Time of Note Date/Time of Note DATE: 03/04/17 TIME: 12:03 Consult Date/Type/Reason Admit Date/Time Feb 28, 2017 at 19:03 Initial Consult Date 02/28/17 Type of Consultation: interventional cardiology Ordering Provider: VENU GABRIEL MD Subjective Cardiology follow up note/ critical care note: S: Discussed with the staff and and rhythm was reviewed. d/w Patient remains stable off of IABP . . he is still in ICU. Patient denies any chest pain or pressure to me. . He denies any active bleeding or groin pain to me. no groin pain or bleeding . O: General: on IABP in ICU HEENT: NC/AT. pupils are equal. round. NECK: + JVD. no stridor. CV: RRR. systolic murmur; no gallop or rubs. PULM: no wheezing or rhonch. GI: SOFT, NT, ND, no rebound or guarding Extremity: trace B/L LE edema. no clubbing. neuro: awake and alert, OX3. Psych: calm and pleasant rectal: deferred vascular: R & L femoral with hematoma or bleeding . ECHO reviewed; EF 15% CXR reviewed Objective Vital Signs Date Time Temp Pulse Resp B/P Pulse Ox O2 Delivery O2 Flow Rate FiO2 03/04/17 11:00 85 13 93/70 97 Room Air 03/04/17 08:00 98.6 03/01/17 23:15 2.0 Intake and Output 03/03/17 03/03/17 03/04/17 15:00 23:00 07:00 Intake Total 300 ml 100 ml Output Total 1295 ml 700 ml 275 ml Balance -995 ml -600 ml -275 ml Results/Medications Result Diagram: 03/04/17 0541 03/04/17 0541 Results 24 hrs Laboratory Tests Test 03/04/17 05:41 White Blood Count 12.4 H Red Blood Count 3.86 L Hemoglobin 11.2 L Hematocrit 34.1 L Mean Corpuscular Volume 88.3 Mean Corpuscular Hemoglobin 29.0 Mean Corpuscular Hemoglobin Concent 32.8 Red Cell Distribution Width 13.1 Platelet Count 439 H Mean Platelet Volume 9.7 Neutrophils % 71.8 Lymphocytes % 17.7 Monocytes % 7.7 Eosinophils % 2.3 Basophils % 0.2 Nucleated Red Blood Cells % 0.0 Neutrophils # 8.9 H Lymphocytes # 2.2 Monocytes # 1.0 H Eosinophils # 0.3 Basophils # 0.0 Nucleated Red Blood Cells # 0.0 Sodium Level 142 Potassium Level 4.3 Chloride Level 108 Carbon Dioxide Level 26 Anion Gap 12 Blood Urea Nitrogen 15 Creatinine 0.77 Glucose Level 102 Calcium Level 8.7 Total Bilirubin 0.3 Direct Bilirubin 0.00 Indirect Bilirubin 0.3 Aspartate Amino Transf (AST/SGOT) 40 Alanine Aminotransferase (ALT/SGPT) 31 Alkaline Phosphatase 116 Total Protein 6.5 Albumin 3.0 L Globulin 3.50 H Albumin/Globulin Ratio 0.85 Medications Current Medications Aspirin (Halfprin) 81 mg DAILY PO Last administered on 03/04/17 08:11; Admin Dose 81 MG; Start 03/01/17 at 09:00 Ticagrelor (Brilinta) 90 mg BID PO Last administered on 03/04/17 08:12; Admin Dose 90 MG; Start 02/28/17 at 21:00 Acetaminophen (Tylenol Tab) 650 mg Q4H PRN PO NON-CARDIAC PAIN LEVEL 1-3; Start 02/28/17 at 19:00 Oxycodone/ Acetaminophen (Percocet (5/ 325)) 1 tab Q4H PRN PO REPORTED NON- CARDIAC PAIN 4-7; Start 02/28/17 at 19:00 Oxycodone/ Acetaminophen (Percocet (5/ 325)) 2 tab Q4H PRN PO REPORTED NON- CARDIAC PAIN 4-7; Start 02/28/17 at 19:00 Al Hydrox/Mg Hydrox/Simethicone (Mag-Al Plus) 30 ml Q4H PRN PO GASTROINTESTINAL UPSET Last administered on 03/03/17 01:26; Admin Dose 30 ML; Start 02/28/17 at 19:00 Docusate Sodium (Colace) 100 mg BID PO Last administered on 03/04/17 08:11; Admin Dose 100 MG; Start 02/28/17 at 21:00 Famotidine (Pepcid) 20 mg Q12 PO Last administered on 03/04/17 08:11; Admin Dose 20 MG; Start 02/28/17 at 21:00 Atorvastatin Calcium 80 mg 80 mg DAILY@21 PO Last administered on 03/03/17 21: 06; Admin Dose 80 MG; Start 02/28/17 at 21:00 Norepinephrine (Levophed) 250 ml @ 1.875 mls/ hr TITRATE IV Last administered on 03/02/17 23:31; Admin Dose 5.25 MLS/HR; Start 02/28/17 at 20:00 Ondansetron HCl (Zofran Inj) 4 mg Q6H PRN IV NAUSEA AND/OR VOMITING; Start at 20:30 Acetaminophen (Tylenol Supp) 650 mg Q4H PRN [place] PAIN LEVEL 1-3 OR FEVER; Start 02/28/17 at 20:30 Morphine Sulfate (morphine) 1 mg Q4H PRN [place] PAIN LEVEL 7-10; Start 02/28/17 at 20:30 Polyethylene Glycol (Miralax) 17 gm DAILY PRN PO CONSTIPATION Last administered on 03/01/17 04:28; Admin Dose 17 GM; Start 02/28/17 at 23:00 Digoxin (Digoxin) 250 mcg DAILY@13 IV Last administered on 03/03/17 13:41; Admin Dose 250 MCG; Start 03/01/17 at 13:00 Assessment/Plan Chief Complaint/Hosp Course 1. Acute anterior STEMI 2. S/P Emergent PCI LAD/ Diag 02/28/17,, s/p PCI LCx and RI 03/02/17 3. cardiogenic shock: BP has improved now. 4. HX HTN: now hypotensive and in shock. 5. severe ischemic cardiomyopathy: EF 15% 6. dyslipidemia 7. hx smoking 8. abnormal ECG due to above 9. severe hypoxemic resp failure due to CHF: improved NOW RECOMMENDATION: ASA 81 cont Brilitna 90 bid will start coreg to see if he can tolerate it. cont O2 as needed off of heparin drip for now. cont high dose statin diuresis as tolerated/ needed, replace Mg and K prn Than 36 minutes of critical care time was spent in management and treatment of this patient excluding any procedures. Thank you for his referral will continue to follow along with you. MAYCO YEAGER MD [facility] Problems: MAYCO YEAGER MD Mar 04, 2017 12:03 MAYCO YEAGER MD Mar 04, 2017 12:03
[2017-03-04] MEDS: DIGOXIN 500 MCG INJ IV SCH (13:02)
--- NOTE | 2017-03-04 15:24 | PN ---
Date/Time of Note Date/Time of Note DATE: 03/04/17 TIME: 15:23 Assessment/Plan VTE Prophylaxis VTE Prophylaxis Intervention: LMWH Lines/Catheters IV C[facility]ter Type (from [facility]): Peripheral IV Urinary Cath still in place: No Assessment/Plan Chief Complaint/Hosp Course 61 yo male with STEMI and cardiogenic shock, s/p PCI CAD w STEMI: - s/p IABP removed, pressors off - s/p PCI - Continue DAPT, statin - Coreg initiated - HUEY if possible in coming days Acute systolic CHF exacerbation: - Diuresis with lasix 20 BID Problems: Subjective 24 Hr Interval Summary Free Text/Dictation Doing well off of pressors and IABP removed, BP normal Comfortable on RA Exam/Review of Systems Vital Signs Vitals Vital Signs Date Time Temp Pulse Resp B/P Pulse Ox O2 Delivery O2 Flow Rate FiO2 03/04/17 13:30 83 11 99/69 98 Room Air 03/04/17 12:00 98.4 03/01/17 23:15 2.0 Intake and Output 03/03/17 03/03/17 03/04/17 15:00 23:00 07:00 Intake Total 300 ml 100 ml Output Total 1295 ml 700 ml 275 ml Balance -995 ml -600 ml -275 ml Exam ++ JVD Breathing comfortably Constitutional: alert, oriented, well developed Psych: nl mood/affect, no complaints Head: atraumatic, normocephalic Eyes: EOMI, PERRL, nl conjunctiva, nl lids, nl sclera ENMT: nl external ears & nose, nl lips & teeth, nl nasal mucosa & septum Neck: non-tender, supple Respiratory: clear to auscultation, normal air movement Cardiovascular: nl pulses, regular rate and rhythm Gastrointestinal: nl liver, spleen, non-tender, soft Musculoskeletal: nl extremities to inspection, nl gait and stance Extremities: normal pulses 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, nl mental status, nl speech, nl strength Skin: nl turgor, No rash or lesions Lymph: nl lymph nodes Results Result Diagram: 03/04/17 0541 03/04/17 0541 Results 24 hrs Laboratory Tests Test 03/04/17 05:41 White Blood Count 12.4 H Red Blood Count 3.86 L Hemoglobin 11.2 L Hematocrit 34.1 L Mean Corpuscular Volume 88.3 Mean Corpuscular Hemoglobin 29.0 Mean Corpuscular Hemoglobin Concent 32.8 Red Cell Distribution Width 13.1 Platelet Count 439 H Mean Platelet Volume 9.7 Neutrophils % 71.8 Lymphocytes % 17.7 Monocytes % 7.7 Eosinophils % 2.3 Basophils % 0.2 Nucleated Red Blood Cells % 0.0 Neutrophils # 8.9 H Lymphocytes # 2.2 Monocytes # 1.0 H Eosinophils # 0.3 Basophils # 0.0 Nucleated Red Blood Cells # 0.0 Sodium Level 142 Potassium Level 4.3 Chloride Level 108 Carbon Dioxide Level 26 Anion Gap 12 Blood Urea Nitrogen 15 Creatinine 0.77 Glucose Level 102 Calcium Level 8.7 Total Bilirubin 0.3 Direct Bilirubin 0.00 Indirect Bilirubin 0.3 Aspartate Amino Transf (AST/SGOT) 40 Alanine Aminotransferase (ALT/SGPT) 31 Alkaline Phosphatase 116 Total Protein 6.5 Albumin 3.0 L Globulin 3.50 H Albumin/Globulin Ratio 0.85 Medications Medications Current Medications Aspirin (Halfprin) 81 mg DAILY PO Last administered on 03/04/17 08:11; Admin Dose 81 MG; Start 03/01/17 at 09:00 Ticagrelor (Brilinta) 90 mg BID PO Last administered on 03/04/17 08:12; Admin Dose 90 MG; Start 02/28/17 at 21:00 Acetaminophen (Tylenol Tab) 650 mg Q4H PRN PO NON-CARDIAC PAIN LEVEL 1-3; Start 02/28/17 at 19:00 Oxycodone/ Acetaminophen (Percocet (5/ 325)) 1 tab Q4H PRN PO REPORTED NON- CARDIAC PAIN 4-7; Start 02/28/17 at 19:00 Oxycodone/ Acetaminophen (Percocet (5/ 325)) 2 tab Q4H PRN PO REPORTED NON- CARDIAC PAIN 4-7; Start 02/28/17 at 19:00 Al Hydrox/Mg Hydrox/Simethicone (Mag-Al Plus) 30 ml Q4H PRN PO GASTROINTESTINAL UPSET Last administered on 03/03/17 01:26; Admin Dose 30 ML; Start 02/28/17 at 19:00 Docusate Sodium (Colace) 100 mg BID PO Last administered on 03/04/17 08:11; Admin Dose 100 MG; Start 02/28/17 at 21:00 Famotidine (Pepcid) 20 mg Q12 PO Last administered on 03/04/17 08:11; Admin Dose 20 MG; Start 02/28/17 at 21:00 Atorvastatin Calcium (Lipitor) 80 mg DAILY@21 PO Last administered on 21:06; Admin Dose 80 MG; Start 02/28/17 at 21:00 Ondansetron HCl (Zofran Inj) 4 mg Q6H PRN IV NAUSEA AND/OR VOMITING; Start at 20:30 Acetaminophen (Tylenol Supp) 650 mg Q4H PRN [place] PAIN LEVEL 1-3 OR FEVER; Start 02/28/17 at 20:30 Morphine Sulfate (morphine) 1 mg Q4H PRN IV PAIN LEVEL 7-10; Start 02/28/17 at 20:30 Polyethylene Glycol (Miralax) 17 gm DAILY PRN PO CONSTIPATION Last administered on 03/01/17 04:28; Admin Dose 17 GM; Start 02/28/17 at 23:00 Carvedilol (Coreg) 3.125 mg BID PO Last administered on 03/04/17 12:11; Admin Dose 3.125 MG; Start 03/04/17 at 12:30 Furosemide (Lasix) 40 mg DAILY@06 PO ; Start 03/05/17 at 06:00 Digoxin (Digoxin) 0.125 mg DAILY@13 PO ; Start 03/05/17 at 13:00 MEGAN COLEY MD Mar 04, 2017 15:24
[2017-03-04] MEDS: ATORVASTATIN 80 MG TAB PO SCH (21:08)
[2017-03-05] VITALS (9 sets, daily range): BP systolic 93–101; BP diastolic 57–67; PULSE 72–115; RESP 18
[2017-03-05] MEDS: FUROSEMIDE 40 MG TAB PO SCH (06:00)
[2017-03-05] MEDS: ASPIRIN (EC) 81 MG TAB PO SCH (09:32)
[2017-03-05] MEDS: TICAGRELOR 90 MG TABLET PO SCH ×2 (09:39→20:30)
[2017-03-05] MEDS: DIGOXIN 0.125 MG TAB PO SCH (13:57)
--- NOTE | 2017-03-05 15:18 | PN ---
Date/Time of Note Date/Time of Note DATE: 03/05/17 TIME: 15:18 Assessment/Plan VTE Prophylaxis VTE Prophylaxis Intervention: LMWH Lines/Catheters [facility] Saline Lock Urinary Cath still in place: No Assessment/Plan Chief Complaint/Hosp Course 61 yo male with STEMI and cardiogenic shock, s/p PCI CAD w STEMI: - s/p IABP removed, pressors off - s/p PCI - Continue DAPT, statin - Coreg initiated - HUEY if possible in coming days Acute systolic CHF exacerbation: - Diuresis with lasix 20 BID Problems: Subjective 24 Hr Interval Summary Free Text/Dictation Doign well, ambulating aroudn without difficulty Exam/Review of Systems Vital Signs Vitals Vital Signs Date Time Temp Pulse Resp B/P Pulse Ox O2 Delivery O2 Flow Rate FiO2 03/05/17 12:22 115 03/05/17 12:02 98.0 18 101/67 98 03/04/17 22:02 21 03/04/17 13:30 Room Air 03/01/17 23:15 2.0 Intake and Output 03/04/17 03/04/17 03/05/17 15:00 23:00 07:00 Intake Total 700 ml 550 ml Output Total 700 ml Balance 0 ml 550 ml Exam ++ JVD Results Result Diagram: 03/05/17 0558 03/05/17 0559 Results 24 hrs Laboratory Tests Test 03/05/17 05:58 03/05/17 05:59 White Blood Count 14.0 H Red Blood Count 3.90 L Hemoglobin 11.2 L Hematocrit 34.3 L Mean Corpuscular Volume 87.9 Mean Corpuscular Hemoglobin 28.7 L Mean Corpuscular Hemoglobin Concent 32.7 Red Cell Distribution Width 13.2 Platelet Count 474 H Mean Platelet Volume 9.7 Neutrophils % 74.0 Lymphocytes % 13.7 L Monocytes % 8.8 Eosinophils % 2.9 Basophils % 0.2 Nucleated Red Blood Cells % 0.0 Neutrophils # 10.4 H Lymphocytes # 1.9 Monocytes # 1.2 H Eosinophils # 0.4 Basophils # 0.0 Nucleated Red Blood Cells # 0.0 Digoxin Level 0.7 L Sodium Level 140 Potassium Level 4.2 Chloride Level 106 Carbon Dioxide Level 24 Anion Gap 14 Blood Urea Nitrogen 13 Creatinine 0.81 Glucose Level 99 Calcium Level 8.5 Magnesium Level 2.0 Total Bilirubin 0.4 Direct Bilirubin 0.00 Indirect Bilirubin 0.4 Aspartate Amino Transf (AST/SGOT) 51 H Alanine Aminotransferase (ALT/SGPT) 43 Alkaline Phosphatase 119 B-Type Natriuretic Peptide 5100 H Total Protein 6.6 Albumin 3.3 Globulin 3.30 H Albumin/Globulin Ratio 1.00 Medications Medications Current Medications Aspirin (Halfprin) 81 mg DAILY PO Last administered on 03/05/17 09:32; Admin Dose 81 MG; Start 03/01/17 at 09:00 Ticagrelor (Brilinta) 90 mg BID PO Last administered on 03/05/17 09:39; Admin Dose 90 MG; Start 02/28/17 at 21:00 Acetaminophen (Tylenol Tab) 650 mg Q4H PRN PO NON-CARDIAC PAIN LEVEL 1-3; Start 02/28/17 at 19:00 Oxycodone/ Acetaminophen (Percocet (5/ 325)) 1 tab Q4H PRN PO REPORTED NON- CARDIAC PAIN 4-7; Start 02/28/17 at 19:00 Oxycodone/ Acetaminophen (Percocet (5/ 325)) 2 tab Q4H PRN PO REPORTED NON- CARDIAC PAIN 4-7; Start 02/28/17 at 19:00 Al Hydrox/Mg Hydrox/Simethicone (Mag-Al Plus) 30 ml Q4H PRN PO GASTROINTESTINAL UPSET Last administered on 03/03/17 01:26; Admin Dose 30 ML; Start 02/28/17 at 19:00 Atorvastatin Calcium (Lipitor) 80 mg DAILY@21 PO Last administered on 21:08; Admin Dose 80 MG; Start 02/28/17 at 21:00 Ondansetron HCl (Zofran Inj) 4 mg Q6H PRN IV NAUSEA AND/OR VOMITING; Start at 20:30 Acetaminophen (Tylenol Supp) 650 mg Q4H PRN [place] PAIN LEVEL 1-3 OR FEVER; Start 02/28/17 at 20:30 Polyethylene Glycol (Miralax) 17 gm DAILY PRN PO CONSTIPATION Last administered on 03/01/17 04:28; Admin Dose 17 GM; Start 02/28/17 at 23:00 Carvedilol (Coreg) 3.125 mg BID PO Last administered on 03/05/17 09:35; Admin Dose 3.125 MG; Start 03/04/17 at 12:30 Furosemide (Lasix) 40 mg DAILY@06 PO ; Start 03/05/17 at 06:00 Digoxin (Digoxin) 0.125 mg DAILY@13 PO Last administered on 03/05/17t 13:57; Admin Dose 0.125 MG; Start 03/05/17 at 13:00 MEGAN COLEY MD Mar 05, 2017 15:18
--- NOTE | 2017-03-05 15:22 | PN ---
Date/Time of Note Date/Time of Note DATE: 03/05/17 TIME: 15:19 Assessment/Plan VTE Prophylaxis VTE Prophylaxis Intervention: SCD's Lines/Catheters IV Catheter Type (from [facility]): Saline Lock Urinary Cath still in place: No Assessment/Plan Assessment/Plan 1. Acute anterior STEMI 2. S/P Emergent PCI LAD/ Diag 02/28/17,, s/p PCI LCx and RI 03/02/17 4. HX HTN: 5. severe ischemic cardiomyopathy: EF 15% 6. dyslipidemia 7. hx smoking 8. abnormal ECG due to above 9. severe hypoxemic resp failure due to CHF: improved NOW RECOMMENDATION: ASA 81 cont Brilitna 90 bid cont O2 as needed cont high dose statin diuresis as tolerated/ needed, Subjective 24 Hr Interval Summary Free Text/Dictation The patient with no cahnge Exam/Review of Systems Vital Signs Vitals Vital Signs Date Time Temp Pulse Resp B/P Pulse Ox O2 Delivery O2 Flow Rate FiO2 03/05/17 12:22 115 03/05/17 12:02 98.0 18 101/67 98 03/04/17 22:02 21 03/04/17 13:30 Room Air 03/01/17 23:15 2.0 Intake and Output 03/04/17 03/04/17 03/05/17 15:00 23:00 07:00 Intake Total 700 ml 550 ml Output Total 700 ml Balance 0 ml 550 ml Results Result Diagram: 03/05/17 0558 03/05/17 0559 Results 24 hrs Laboratory Tests Test 03/05/17 05:58 03/05/17 05:59 White Blood Count 14.0 H Red Blood Count 3.90 L Hemoglobin 11.2 L Hematocrit 34.3 L Mean Corpuscular Volume 87.9 Mean Corpuscular Hemoglobin 28.7 L Mean Corpuscular Hemoglobin Concent 32.7 Red Cell Distribution Width 13.2 Platelet Count 474 H Mean Platelet Volume 9.7 Neutrophils % 74.0 Lymphocytes % 13.7 L Monocytes % 8.8 Eosinophils % 2.9 Basophils % 0.2 Nucleated Red Blood Cells % 0.0 Neutrophils # 10.4 H Lymphocytes # 1.9 Monocytes # 1.2 H Eosinophils # 0.4 Basophils # 0.0 Nucleated Red Blood Cells # 0.0 Digoxin Level 0.7 L Sodium Level 140 Potassium Level 4.2 Chloride Level 106 Carbon Dioxide Level 24 Anion Gap 14 Blood Urea Nitrogen 13 Creatinine 0.81 Glucose Level 99 Calcium Level 8.5 Magnesium Level 2.0 Total Bilirubin 0.4 Direct Bilirubin 0.00 Indirect Bilirubin 0.4 Aspartate Amino Transf (AST/SGOT) 51 H Alanine Aminotransferase (ALT/SGPT) 43 Alkaline Phosphatase 119 B-Type Natriuretic Peptide 5100 H Total Protein 6.6 Albumin 3.3 Globulin 3.30 H Albumin/Globulin Ratio 1.00 Medications Medications Current Medications Aspirin (Halfprin) 81 mg DAILY PO Last administered on 03/05/17 09:32; Admin Dose 81 MG; Start 03/01/17 at 09:00 Ticagrelor (Brilinta) 90 mg BID PO Last administered on 03/05/17 09:39; Admin Dose 90 MG; Start 02/28/17 at 21:00 Acetaminophen (Tylenol Tab) 650 mg Q4H PRN PO NON-CARDIAC PAIN LEVEL 1-3; Start 02/28/17 at 19:00 Oxycodone/ Acetaminophen (Percocet (5/ 325)) 1 tab Q4H PRN PO REPORTED NON- CARDIAC PAIN 4-7; Start 02/28/17 at 19:00 Oxycodone/ Acetaminophen (Percocet (5/ 325)) 2 tab Q4H PRN PO REPORTED NON- CARDIAC PAIN 4-7; Start 02/28/17 at 19:00 Al Hydrox/Mg Hydrox/Simethicone (Mag-Al Plus) 30 ml Q4H PRN PO GASTROINTESTINAL UPSET Last administered on 03/03/17 01:26; Admin Dose 30 ML; Start 02/28/17 at 19:00 Atorvastatin Calcium (Lipitor) 80 mg DAILY@21 PO Last administered on 21:08; Admin Dose 80 MG; Start 02/28/17 at 21:00 Ondansetron HCl (Zofran Inj) 4 mg Q6H PRN IV NAUSEA AND/OR VOMITING; Start at 20:30 Acetaminophen (Tylenol Supp) 650 mg Q4H PRN [place] PAIN LEVEL 1-3 OR FEVER; Start 02/28/17 at 20:30 Polyethylene Glycol (Miralax) 17 gm DAILY PRN PO CONSTIPATION Last administered on 03/01/17 04:28; Admin Dose 17 GM; Start 02/28/17 at 23:00 Carvedilol (Coreg) 3.125 mg BID PO Last administered on 03/05/17 09:35; Admin Dose 3.125 MG; Start 03/04/17 at 12:30 Furosemide (Lasix) 40 mg DAILY@06 PO ; Start 03/05/17 at 06:00 Digoxin (Digoxin) 0.125 mg DAILY@13 PO Last administered on 03/05/17 13:57; Admin Dose 0.125 MG; Start 03/05/17 at 13:00 LINDA JASSO MD Mar 05, 2017 15:22
[2017-03-05] MEDS: ATORVASTATIN 80 MG TAB PO SCH (20:27)
[2017-03-06] VITALS (11 sets, daily range): BP systolic 84–99; BP diastolic 55–69; PULSE 68–82; RESP 18–20
[2017-03-06] MEDS: FUROSEMIDE 40 MG TAB PO SCH (06:00)
[2017-03-06] MEDS: ASPIRIN (EC) 81 MG TAB PO SCH (09:34)
[2017-03-06] MEDS: TICAGRELOR 90 MG TABLET PO SCH ×2 (09:37→20:29)
--- NOTE | 2017-03-06 12:30 | PN ---
Date/Time of Note Date/Time of Note DATE: 03/06/17 TIME: 12:23 Assessment/Plan VTE Prophylaxis VTE Prophylaxis Intervention: ambulation Lines/Catheters IV Catheter Type (from Nrs): Saline Lock Urinary Cath still in place: No Assessment/Plan Assessment/Plan Assessment/Plan 1. Acute anterior STEMI 2. S/P Emergent PCI LAD/ Diag 02/28/17,, s/p PCI LCx and RI 03/02/17 4. HX HTN: 5. severe ischemic cardiomyopathy: EF 15% 6. dyslipidemia 7. hx smoking 8. abnormal ECG due to above 9. severe hypoxemic resp failure due to CHF: improved NOW RECOMMENDATION: ASA 81 cont Brilitna 90 bid cont O2 as needed cont high dose statin will lower lasix to 20mg daily as it has been held for 48 hrs Subjective 24 Hr Interval Summary Free Text/Dictation comfortable Exam/Review of Systems Vital Signs Vitals Vital Signs Date Time Temp Pulse Resp B/P Pulse Ox O2 Delivery O2 Flow Rate FiO2 03/06/17 12:18 82 03/06/17 09:00 98.0 18 93/67 98 03/06/17 01:28 21 03/04/17 13:30 Room Air Intake and Output 03/05/17 03/05/17 03/06/17 15:00 23:00 07:00 Intake Total 800 ml 700 ml Output Total 550 ml Balance 800 ml 150 ml Results Result Diagram: 03/05/17 0558 03/05/17 0559 Medications Medications Current Medications Aspirin (Halfprin) 81 mg DAILY PO Last administered on 03/06/17 09:34; Admin Dose 81 MG; Start 03/01/17 at 09:00 Ticagrelor (Brilinta) 90 mg BID PO Last administered on 03/06/17 09:37; Admin Dose 90 MG; Start 02/28/17 at 21:00 Acetaminophen (Tylenol Tab) 650 mg Q4H PRN PO NON-CARDIAC PAIN LEVEL 1-3; Start 02/28/17 at 19:00 Oxycodone/ Acetaminophen (Percocet (5/ 325)) 1 tab Q4H PRN PO REPORTED NON- CARDIAC PAIN 4-7; Start 02/28/17 at 19:00 Oxycodone/ Acetaminophen (Percocet (5/ 325)) 2 tab Q4H PRN PO REPORTED NON- CARDIAC PAIN 4-7; Start 02/28/17 at 19:00 Al Hydrox/Mg Hydrox/Simethicone (Mag-Al Plus) 30 ml Q4H PRN PO GASTROINTESTINAL UPSET Last administered on 03/03/17 01:26; Admin Dose 30 ML; Start 02/28/17 at 19:00 Atorvastatin Calcium (Lipitor) 80 mg DAILY@21 PO Last administered on 20:27; Admin Dose 80 MG; Start 02/28/17 at 21:00 Ondansetron HCl (Zofran Inj) 4 mg Q6H PRN IV NAUSEA AND/OR VOMITING; Start at 20:30 Acetaminophen (Tylenol Supp) 650 mg Q4H PRN [place] PAIN LEVEL 1-3 OR FEVER; Start 02/28/17 at 20:30 Polyethylene Glycol (Miralax) 17 gm DAILY PRN PO CONSTIPATION Last administered on 03/01/17 04:28; Admin Dose 17 GM; Start 02/28/17 at 23:00 Carvedilol (Coreg) 3.125 mg BID PO Last administered on 03/05/17 09:35; Admin Dose 3.125 MG; Start 03/04/17 at 12:30 Furosemide (Lasix) 40 mg DAILY@06 PO ; Start 03/05/17 at 06:00 Digoxin (Digoxin) 0.125 mg DAILY@13 PO Last administered on 03/05/17 13:57; Admin Dose 0.125 MG; Start 03/05/17 at 13:00 JULIUS CHAUHAN MD Mar 06, 2017 12:30
[2017-03-06] MEDS: DIGOXIN 0.125 MG TAB PO SCH (13:49)
[2017-03-06] MEDS ORDERED: LAS20 PO (16:14)
[2017-03-06] MEDS ORDERED: DIGO125T PO (16:14)
[2017-03-06] MEDS ORDERED: ATOR80TA75 PO (16:14)
[2017-03-06] MEDS ORDERED: ASPI-664 PO (16:14)
[2017-03-06] MEDS ORDERED: CARV3.1260 PO (16:14)
[2017-03-06] MEDS ORDERED: TICA90TA PO (16:14)
--- NOTE | 2017-03-06 16:16 | PDOCDIS ---
Discharge Instructions DIAGNOSIS Discharge Diagnosis Myocardial infarction CONDITION Patient Condition: Fair HOME CARE INSTRUCTIONS: Diet Instructions: Reduced SodiumSpecial Diet: [facility] Diet. FOLLOW UP/APPOINTMENTS Follow-up Plan It is extermely important for you to take your medications everyday as prescribed. These medications are for the rest of your life. If you ever run out come to the doctor immediately for renewals/refills You must make an appointment to see your instrumentation and controls designer Dr Saab in clinic within 1-2 weeks You should monitor your weight and ensure you are not retaining fluid Return to the hospital immediately if you feel shortness of breath or discomfort in your chest MEGAN COLEY MD Mar 06, 2017 16:16
--- NOTE | 2017-03-06 16:16 | PDOCDIS ---
Discharge Instructions DIAGNOSIS Discharge Diagnosis Myocardial infarction CONDITION Patient Condition: Fair HOME CARE INSTRUCTIONS: Diet Instructions: Reduced SodiumSpecial Diet: [facility] Diet. FOLLOW UP/APPOINTMENTS Follow-up Plan It is extermely important for you to take your medications everyday as prescribed. These medications are for the rest of your life. If you ever run out come to the doctor immediately for renewals/refills You must make an appointment to see your group exercise instructor Dr Saab in clinic within 1-2 weeks You should monitor your weight and ensure you are not retaining fluid Return to the hospital immediately if you feel shortness of breath or discomfort in your chest MEGAN COLEY MD Mar 06, 2017 16:16
--- NOTE | 2017-03-06 16:21 | DS ---
Date/Time of Note Date/Time of Note DATE: 03/06/17 TIME: 16:19 Discharge Summary Admission/Discharge Info Admit Date/Time Feb 28, 2017 at 19:03 Discharge Date/Time Discharge Diagnosis Myocardial infarction Patient Condition: Fair Hx of Present Illness cc: chest pain x 2 weeks This is a 61-year-old male with a history of hypertension, noncompliant on his medications who is presented to the ED with chest pain. The patient first had chest pain left-sided radiating up into his neck with nausea and vomiting 2 weeks ago. It remitted after 1-2 days. However, it recurred approximately 2 hours prior to arrival to the emergency department today. He describes it as left-sided chest pressure and aching and squeezing. It is radiating into his neck bilaterally and the patient has jaw pain. He endorses nausea with sweating. She does report that he has not been taking his medications on a regular basis. The patient denies feeling sick recently. The patient denies fever or chills. The patient has had no headache or vision changes. The patient does not endorse back pain. The patient denies lightheadedness or dizziness. The patient has had no shortness of breath or trouble breathing. The patient denies abdominal pain or changes to bowel movements or urination. The patient has had no focal deficits. The patient has had no weakness or numbness or tingling to the face or extremities. EKG in the emergency room shows marked anterior ST elevation myocardial infarction with Q waves anteriorly consistent with recent [facility]. Because of the nature of his pain as well as EKG changes it was determined that it would be best to take the patient in to the [facility] for an emergent catheterization. He was noted to have multivessel disease on coronary angiography. And he had stents 2 placed in the LAD as well as an intra-aortic balloon pump secondary to cardiogenic shock. Patient currently right now is in the ICU and he is stable and doing well. He denies any chest pain at this time. He did report that earlier he was having some shortness of breath which patient was given Lasix and he is appropriately diuresing at this moment. Allergies: NKDA Medications: See MAR Hospital Course Patient presented with STEMI and taken urgently to lab intern. There findings included: Findings: 1. Left main: is long and trirfurcates to LAD & LCX, RI. it has 30% distal stenosis 2. LAD: is long has subtotal stenosis at proximal LAD, and 95 % stenosis at mid LAD ---> 0% post PCI . diagonal 1 also had 99% ostial/ proximal stenosis. ---> 0% post PCI distal LAD is very small and diffusely diseased 3. Left circumflex artery: is nondominant. it has 80% mid stenosis 4. Ramus intermediate: is a large vessel with 70% ostial and 80 proximal stenosis. 5. RCA: is moderate to large vessel. it isdominant. it has 40 % stenosis at proximal and mid Procure performed: #1 emergent left heart catheterization and selective right and left coronary angiogram. #2 Right femoral angiogram 3. Successful PTCA and stenting of proximal LAD using 2.75x15 mm [place] NEW and mid to proximal LAD using a 2.5X38 mm alie NEW 4. PTCA of diagonal one 5. Thrombectomy of LAD using a pronto device 6. IABP placement under direct fluoroscopy 7. Moderate sedation for more than 75 minutes Post cath TTE showed EF of 15%. He remained hypotensive and requiried IABP and pressors. These were weaned off over the following two days. He was in mild systolic CHF decompenstion and given IV lasix to euvolemia. His BP remained on the low side, but he tolerated low dose Coreg. Given his hypotension, he was not yet given HUEY or ARB He was prescribed atorvastatin, digoxin and DAPT (aspirin/brillinta) He felt well without chest discomfort or dyspnea at time of discharge He will follow up in clinic [facility] Dr Saab Home Meds Active Scripts Furosemide (Lasix) 20 Mg Tab, 20 MG PO DAILY@06 for 60 Days, #60 TAB Prov:MEGAN COLEY MD 03/06/17 Aspirin* (Aspirin* EC) 81 Mg Tablet., 81 MG PO DAILY for 60 Days, #60 TAB Prov:MEGAN COLEY MD 03/06/17 Digoxin* (Digitek*) 125 Mcg Tablet, 0.125 MG PO DAILY@13 for 60 Days, #60 TAB Prov:MEGAN COLEY MD 03/06/17 Carvedilol* (Carvedilol*) 3.125 Mg Tablet, 3.125 MG PO BID for 60 Days, #120 TAB Prov:MEGAN COLEY MD 03/06/17 Atorvastatin* (Atorvastatin*) 80 Mg Tablet, 80 MG PO DAILY@21 for 60 Days, #60 TAB Prov:MEGAN COLEY MD 03/06/17 Ticagrelor* (Brilinta*) 90 Mg Tablet, 90 MG PO BID for 60 Days, #120 TAB Prov:MEGAN COLEY MD 03/06/17 Follow-up Plan It is extermely important for you to take your medications everyday as prescribed. These medications are for the rest of your life. If you ever run out come to the doctor immediately for renewals/refills You must make an appointment to see your credit historian Dr Saab in clinic within 1-2 weeks You should monitor your weight and ensure you are not retaining fluid Return to the hospital immediately if you feel shortness of breath or discomfort in your chest Primary Care Provider Care Physician No Primary MEGAN COLEY MD Mar 06, 2017 16:21
[2017-03-06] MEDS ORDERED: FUROSEMIDE 40 MG INJ IV ONE (16:30)
[2017-03-06] MEDS: ATORVASTATIN 80 MG TAB PO SCH (20:26)
[2017-03-07] VITALS (10 sets, daily range): BP systolic 94–107; BP diastolic 61–73; PULSE 69–81; RESP 16–20
[2017-03-07] MEDS ORDERED: FUROSEMIDE 20 MG TAB PO SCH (06:00)
[2017-03-07] MEDS: TICAGRELOR 90 MG TABLET PO SCH (09:08)
[2017-03-07] MEDS: ASPIRIN (EC) 81 MG TAB PO SCH (09:09)
[2017-03-07] MEDS: DIGOXIN 0.125 MG TAB PO SCH (12:57)
--- NOTE | 2017-03-07 15:02 | CONS ---
Date/Time of Note Date/Time of Note DATE: 03/07/17 TIME: 15:00 Consult Date/Type/Reason Admit Date/Time Feb 28, 2017 at 19:03 Initial Consult Date 02/28/17 Type of Consultation: interventional cardiology Reason for Consultation S: Discussed with the staff and and rhythm was reviewed. d/w Patient denies any chest pain or pressure to me. he wants to go home He denies any active bleeding or groin pain to me. no groin pain or bleeding . O: General: no acute distress HEENT: NC/AT. pupils are equal. round. NECK: + JVD. no stridor. CV: RRR. systolic murmur; no gallop or rubs. PULM: no wheezing or rhonch. GI: SOFT, NT, ND, no rebound or guarding Extremity: trace B/L LE edema. no clubbing. neuro: awake and alert, OX3. Psych: calm and pleasant rectal: deferred vascular: R & L femoral with no hematoma or bleeding . ECHO reviewed; EF 15% CXR reviewed Ordering Provider: VENU GABRIEL MD Objective Vital Signs Date Time Temp Pulse Resp B/P Pulse Ox O2 Delivery O2 Flow Rate FiO2 03/07/17 13:33 Room Air 03/07/17 12:32 98.2 75 16 97/62 99 03/06/17 01:28 21 Intake and Output 03/06/17 03/06/17 03/07/17 15:00 23:00 07:00 Intake Total 850 ml 750 ml Balance 850 ml 750 ml Results/Medications Result Diagram: 03/07/17 0604 03/07/17 0604 Results 24 hrs Laboratory Tests Test 03/07/17 06:04 White Blood Count 9.6 # Red Blood Count 3.92 L Hemoglobin 11.3 L Hematocrit 34.2 L Mean Corpuscular Volume 87.2 Mean Corpuscular Hemoglobin 28.8 L Mean Corpuscular Hemoglobin Concent 33.0 Red Cell Distribution Width 13.2 Platelet Count 520 H Mean Platelet Volume 9.1 Neutrophils % 63.1 Lymphocytes % 24.8 Monocytes % 7.3 Eosinophils % 4.2 Basophils % 0.4 Nucleated Red Blood Cells % 0.0 Neutrophils # 6.0 Lymphocytes # 2.4 Monocytes # 0.7 Eosinophils # 0.4 Basophils # 0.0 Nucleated Red Blood Cells # 0.0 Sodium Level 141 Potassium Level 4.2 Chloride Level 106 Carbon Dioxide Level 26 Anion Gap 13 Blood Urea Nitrogen 14 Creatinine 0.75 Glucose Level 103 Calcium Level 8.7 Medications Current Medications Aspirin (Halfprin) 81 mg DAILY PO Last administered on 03/07/17 09:09; Admin Dose 81 MG; Start 03/01/17 at 09:00 Ticagrelor (Brilinta) 90 mg BID PO Last administered on 03/07/17 09:08; Admin Dose 90 MG; Start 02/28/17 at 21:00 Acetaminophen (Tylenol Tab) 650 mg Q4H PRN PO NON-CARDIAC PAIN LEVEL 1-3; Start 02/28/17 at 19:00 Oxycodone/ Acetaminophen (Percocet (5/ 325)) 1 tab Q4H PRN PO REPORTED NON- CARDIAC PAIN 4-7; Start 02/28/17 at 19:00 Oxycodone/ Acetaminophen (Percocet (5/ 325)) 2 tab Q4H PRN PO REPORTED NON- CARDIAC PAIN 4-7; Start 02/28/17 at 19:00 Al Hydrox/Mg Hydrox/Simethicone (Mag-Al Plus) 30 ml Q4H PRN PO GASTROINTESTINAL UPSET Last administered on 03/03/17 01:26; Admin Dose 30 ML; Start 02/28/17 at 19:00 Atorvastatin Calcium (Lipitor) 80 mg DAILY@21 PO Last administered on 20:26; Admin Dose 80 MG; Start 02/28/17 at 21:00 Ondansetron HCl (Zofran Inj) 4 mg Q6H PRN IV NAUSEA AND/OR VOMITING; Start at 20:30 Acetaminophen (Tylenol Supp) 650 mg Q4H PRN CO PAIN LEVEL 1-3 OR FEVER; Start 02/28/17 at 20:30 Polyethylene Glycol (Miralax) 17 gm DAILY PRN PO CONSTIPATION Last administered on 03/01/17 04:28; Admin Dose 17 GM; Start 02/28/17 at 23:00 Carvedilol (Coreg) 3.125 mg BID PO Last administered on 03/05/17 09:35; Admin Dose 3.125 MG; Start 03/04/17 at 12:30 Digoxin (Digoxin) 0.125 mg DAILY@13 PO Last administered on 11/6/17at 12:57; Admin Dose 0.125 MG; Start 03/05/17 at 13:00 Furosemide (Lasix) 20 mg DAILY@06 PO ; Start 03/07/17 at 06:00 Assessment/Plan Chief Complaint/Hosp Course 1. Acute anterior STEMI 2. S/P Emergent PCI LAD/ Diag 02/28/17,, s/p PCI LCx and RI 03/02/17 3. cardiogenic shock: BP has improved now. 4. HX HTN: now hypotensive and in shock. 5. severe ischemic cardiomyopathy: EF 15% 6. dyslipidemia 7. hx smoking 8. abnormal ECG due to above 9. severe hypoxemic resp failure due to CHF: improved NOW RECOMMENDATION: ASA 81 cont Brilitna 90 bid coreg as tolerated cont O2 as needed cont high dose statin diuresis as tolerated/ needed, dc planning. f/u with me in 1-2 weeks. Thank you for his referral will continue to follow along with you. MAYCO YEAGER MD [facility] Problems: MAYCO YEAGER MD Mar 07, 2017 15:02
== END 2017-03-07 16:40 | disposition home or self-care (01) | DRG 270 ==
LOC: E/R 17:03 → ICU 17:42 → TEL 03-04 15:17
PROVIDERS: ADMIT Internal Medicine Interventional Cardiology; ATTEND Internal Medicine
PROC: 5A02210 Assistance with Cardiac Output using Balloon Pump, Continuous (ICD-10-PCS; 2017-02-28)
PROC: 02C03ZZ Extirpation of Matter from Coronary Artery, One Artery, Percutaneous Approach (ICD-10-PCS; 2017-02-28)
PROC: 02703ZZ Dilation of Coronary Artery, One Artery, Percutaneous Approach (ICD-10-PCS; 2017-02-28)
PROC: 4A023N7 Measurement of Cardiac Sampling and Pressure, Left Heart, Percutaneous Approach (ICD-10-PCS; 2017-02-28)
PROC: B211YZZ Fluoroscopy of Multiple Coronary Arteries using Other Contrast (ICD-10-PCS; 2017-02-28)
PROC: 027035Z Dilation of Coronary Artery, One Artery with Two Drug-eluting Intraluminal Devices, Percutaneous Approach (ICD-10-PCS; principal; 2017-02-28 19:00)
PROC: 027034Z Dilation of Coronary Artery, One Artery with Drug-eluting Intraluminal Device, Percutaneous Approach (ICD-10-PCS; 2017-03-02)
PROC: 02703ZZ Dilation of Coronary Artery, One Artery, Percutaneous Approach (ICD-10-PCS; 2017-03-02)
PROC: 4A023N7 Measurement of Cardiac Sampling and Pressure, Left Heart, Percutaneous Approach (ICD-10-PCS; 2017-03-02)
PROC: B211YZZ Fluoroscopy of Multiple Coronary Arteries using Other Contrast (ICD-10-PCS; 2017-03-02)
DX: I21.09 ST elevation (STEMI) myocardial infarction involving other coronary artery of anterior wall (principal); R57.0 Cardiogenic shock; I11.0 Hypertensive heart disease with heart failure; I50.23 Acute on chronic systolic (congestive) heart failure; I25.10 Atherosclerotic heart disease of native coronary artery without angina pectoris; E78.5 Hyperlipidemia, unspecified; F17.200 Nicotine dependence, unspecified, uncomplicated; I25.5 Ischemic cardiomyopathy
CPT/HCPCS: 36415; 36600; 71010; 80048; 80053; 80061; 80162; 82550; 82553; 82803; 83735; 83880; 84439; 84443; 84484; 85025; 85610; 85730; 86703; 86704; 86709; 86803; 87081; 87340; 93005; 93306; 93458; J1940; C1725; C1757; C1760; C1887; C1894; C9113; C9600; C9601; J0583; J0690; J1644; J2250; J3010; J3475; J7030; Q9967